=== PATIENT | male | born 1965 | race Caucasian/White ===

== ENCOUNTER 2020-08-27 23:31 | Emergency (ER) | payer MEDICARE, SELFPAY ==
[2020-08-27 23:46] VITALS: BP 122/79; BP 126/84; PULSE 66; PULSE 70; RESP 18; TEMP 36.2; O2SAT 96; O2SAT 98; BMI 25.0
[2020-08-28] VITALS: BP 117/56; PULSE 84; RESP 18; TEMP 36.8; O2SAT 98
--- NOTE | 2020-08-28 00:52 | MHC.CARE ---
CARE team met with pt in ED 22H. Pt arrived from [facility] after pt woke up agitated and banged his head on the wall. Pt reported that he woke up because people were being loud, and that he hit his head on the wall one time out of anger. Pt denied having any thoughts of suicide or and denied wanting to harm self or others. Pt reported that he has been at [facility] since his father and his mother was placed in a nursing facility, because pt is unable to remain at home independently. Pt expressed frustration with the situation, and wanting to get his belongings, but reported that he is otherwise agreeable for return to the facility. When medically cleared, ED staff will communicate with [facility] to facilitate return.
--- NOTE | 2020-08-28 01:14 | ED_ITS ---
HPI - Psych General Chief Complaint: Psychiatric Symptoms Stated Complaint: crisis Time Seen by Provider: 08/28/20 00:20 Source: patient and EMS Mode of arrival: EMS Limitations: no limitations History of Present Illness HPI Narrative: Appearance: Alert. Oriented X3. No acute distress. Eyes: Pupils equal, round and reactive to light. ENT: Pharynx normal. Neck: Normal inspection. Neck supple. No lymph nodes noted. No crepitus CVS: Normal heart rate and rhythm. Pulses normal. Normal S1 and S2 Respiratory: No respiratory distress. Breath sounds normal. No Wheezing. No rales Abdomen: Soft and nontender. No rigidity. No distention. good BS x4 Skin: Skin warm and dry. Normal skin color. Normal skin turgor. Extremities: No lower extremity edema. No lower extremity edema. No Lacerations. No Rash Neuro: Oriented X 3. No motor deficit. No sensory deficit. Moving all extermities. No slurred speech.Patient is sent to the emergency room from the [facility]. Patient states that the staff was being loud, he has trouble sleeping, he became agitated, accepts that he banged his head on the wall. Patient states he is not suicidal or homicidal, patient was just very frustrated. Patient was sent here for further evaluation. Related Data Allergies Allergy/AdvReac Type Severity Reaction Status Date / Time doxycycline [DOXYCYCLINE] Allergy Unknown UNKNOWN Unverified 05/17/20 19:53 Penicillins [PCN] Allergy Unknown SYNCOPE, Unverified 05/17/20 19:53 SEIZURE tetracycline [TETRACYCLINE] Allergy Unknown UNKNOWN Unverified 05/17/20 19:53 Review of Systems Review of Systems: Constitutional : No Weight loss, No Fever, No Chills, No Night Sweats, No Fatigue, No Malaise ENT/Mouth : No Hearing loss, No Ear Pain, No Nasal Congestion, No Sinus Pain, No Hoarseness, No sore throat, No Rhinorrhea, No Swallowing Difficulty Eyes: No Eye Pain, No Swelling, No Redness, No Foreign Body, No Discharge, No Vision Changes Cardiovascular : No Chest Pain, No SOB, No Dyspnea on Exertion, No Orthopnea, No Edema, No Palpitations Respiratory : No Cough, No Sputum, No Wheezing, No Smoke Exposure, No Dyspnea Gastrointestinal : No Nausea, No Vomiting, No Diarrhea, No Constipation, No abdominal Pain, No Hematochezia, No Melena Genitourinary : no irregular bleeding, No Dysuria, No Urinary Frequency, No Hematuria, No Urinary Incontinence, No Urgency, No Flank Pain, No Urinary Flow Changes, No Hesitancy Musculoskeletal : No joint pain, No Myalgias, No Joint Swelling Skin : No Skin Lesions, No rash Neuro : No Weakness, No Numbness, No Paresthesias, No Loss of Consciousness, No Dizziness, No Headache Psych : Patient reports an episode of anxiety, anger, head banging due to frustration Heme/Lymph: No Bruising, No Bleeding,No Lymphadenopathy Endocrine : No Polyuria, No Polydipsia, No Temperature Intolerance PMFSH Past Medical History Medical History Anxiety Epilepsy Glaucoma Hydrocephalus Neurofibromatosis Surgical History (Updated 08/27/20 @ 23:55 by Shruthi Whiteside) Surgical history unknown Social History Social History Advance Directives: No Advance Directives Information Provided: No Physical Exam Vital Signs: Vital Signs: Last Vital Signs Temp 98.2 F 08/28/20 00:00 Pulse 73 08/28/20 02:00 Resp 18 08/28/20 02:00 BP 127/69 08/28/20 02:00 Pulse Ox 97 08/28/20 02:00 Body Mass Index 25.0 Appearance: Alert. Oriented X3. No acute distress. Eyes: Pupils equal, round and reactive to light. ENT: Pharynx normal. Neck: Normal inspection. Neck supple. No lymph nodes noted. No crepitus CVS: Normal heart rate and rhythm. Pulses normal. Normal S1 and S2 Respiratory: No respiratory distress. Breath sounds normal. No Wheezing. No rales Abdomen: Soft and nontender. No rigidity. No distention. good BS x4 Skin: Skin warm and dry. Normal skin color. Normal skin turgor. Extremities: No lower extremity edema. No lower extremity edema. No Lace rations. No Rash Neuro: Oriented X 3. No motor deficit. No sensory deficit. Moving all extermities. No slurred speech. Course Course Course Narrative: The care team evaluated the patient, at this time, the recommendations are to return patient to [facility]. Urinalysis negative for UTI MDM - Psych Restraints Face to Face Assessment: Face to Face Assessment: Current Situation: After assessment of the patient, a review of the pertinent medical record and a discussion with nursing staff, I feel the patient requires a restrain intervention. Reaction To: [] Medical Condition: [] Behavioral State: [] Continued Need: [] Lab Data Labs: Lab Results 08/28/20 08/28/20 Range/Units 02:15 02:15 Urine Color YELLOW Urine Appearance CLEAR Urine pH 6.0 (5.0-8.0) Ur Specific [place] 1.020 (1.005-1.025) Urine Protein NEG (NEG-TRACE) MG/DL Urine Glucose (UA) NEG (NEG) MG/DL Urine Ketones NEG (NEG) MG/DL Urine Blood NEG (NEG) Urine Nitrite NEG (NEG) Ur Leukocyte Esterase NEG (NEG) Urine Opiates Screen Not Detected (Not Detect) Ur Barbiturates Screen Not Detected (Not Detect) Ur Phencyclidine Scrn Not Detected (Not Detect) Ur Amphetamines Screen Not Detected (Not Detect) U Benzodiazepines Scrn Not Detected (Not Detect) Urine Cocaine Screen Not Detected (Not Detect) U Marijuana (THC) Screen Not Detected (Not Detect) Discharge Plan Discharge Clinical Impression: Acute anxiety Patient Disposition: Xfer Other Instructions: Anxiety (ED) Additional Instructions: Please follow-up with your primary care physician tomorrow. If you have any wo rsening or new symptoms, please return to the emergency room or call 911
[2020-08-28 02:00] VITALS: BP 127/69; PULSE 73; RESP 18; O2SAT 97
--- NOTE | 2020-08-28 02:08 | PC.NURSE ---
PATIENT ATTEMPTING TO GIVE URINE SPECIMEN AT THIS TIME. PLAN TO DISCHARGE HOME, PENDING URINE SPECIMEN RESULTS - PER .
[2020-08-28 02:29] LABS: Glucose Urine UA NEG (NEG); Leukocyte Esterase Urine NEG (NEG); Nitrite Urine NEG (NEG); Urine Blood NEG (NEG); Urine Ketones NEG (NEG); Urine Protein NEG (NEG-TRACE)
[2020-08-28 02:34] LABS: Appearance Urine CLEAR; Color Urine YELLOW
[2020-08-28 02:52] LABS: Amphetamine Screen Urine Not Detected (Not Detect); Barbiturates, Urine Not Detected (Not Detect); Benzodiazepines Screen Urine Not Detected (Not Detect); Cannabinoid Screen Urine Not Detected (Not Detect); Cocaine Screen Urine Not Detected (Not Detect); Opiate Screen Urine Not Detected (Not Detect); Phencyclidine Screen Urine Not Detected (Not Detect)
--- NOTE | 2020-08-28 04:29 | PC.NURSE ---
AWAITING TRANSPORT BACK TO [facility]. THIS RN ATTEMPTED TO CONTACT [facility] STAFF TO GIVE RN TO RN REPORT, BUT WAS UNABLE TO REACH STAFF AT THIS TIME. WILL TRY AGAIN SHORTLY.
== END 2020-08-28 06:04 | disposition other institution (70) ==
PROVIDERS: Emergency Provider Emergency Medicine; PCP Family Medicine
DX: F41.1 Generalized anxiety disorder (principal)
CPT/HCPCS: 80307; 81003; 99284

== ENCOUNTER 2021-07-01 11:49 | Emergency (ER) | payer MEDICARE, MEDICAID, SELFPAY ==
[2021-07-01 11:59] VITALS: BP 106/64; BP 112/68; PULSE 59; PULSE 72; RESP 18; TEMP 36.3; O2SAT 100; O2SAT 98; BMI 26.6
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
[2021-07-01] MEDS: Diphth,Pertus(ACell),Tet Adult 0.5 ML SYRINGE IM (12:41)
[2021-07-01] MEDS: Lidocaine/Epineph/Tetracaine 3 ML GEL.PF.APP TOPICAL (12:41)
--- NOTE | 2021-07-01 12:43 | PC.NURSE ---
pt medicated per order
--- NOTE | 2021-07-01 13:04 | PC.NURSE ---
report called to [facility], ambulance being set up for discharge
== END 2021-07-01 14:49 | disposition home or self-care (01) ==
PROVIDERS: Emergency Provider Emergency Medicine
DX: S01.01XA Laceration without foreign body of scalp, initial encounter (principal); G40.909 Epilepsy, unspecified, not intractable, without status epilepticus; G31.84 Mild cognitive impairment of uncertain or unknown etiology; W22.03XA Walked into furniture, initial encounter; Y93.9 Activity, unspecified; Y92.129 Unspecified place in nursing home as the place of occurrence of the external cause; Y99.9 Unspecified external cause status
CPT/HCPCS: 12001; 90471; 90715; 99283; 99284

== ENCOUNTER 2021-11-08 19:03 | Inpatient (IN) | payer MEDICARE, MEDICAID, SELFPAY ==
--- NOTE | ~2021-11-08 | XR_ITS ---
EXAMINATION: XR pre mri screening CLINICAL INFORMATION: Reason for Exam has shunt COMPARISON: None. TECHNIQUE: AP and lateral radiographs of the skull; 3 AP radiographs of the abdomen and pelvis FINDINGS: Skull: Partial visualization is made of a right parietal intraventricular catheter. The reservoir is not viewed on fossa and images are not obtained for assessment of reservoir settings. Multifocal dental amalgam is identified. No orbital radiopaque foreign bodies are identified. ABDOMEN: Excreted contrast agent is noted in the urinary bladder. Partial visualization is made of a peritoneal shunt catheter. Scattered bowel gas noted in nondistended small and large bowel segments. Multiple overlying artifacts are visualized. XR/XR pre mri screening IMPRESSION: Radiographs of the skull and of the abdomen pelvis: *No embedded radiopaque foreign bodies that would be a contraindication for MRI. *Partially visualized right parietal intraventricular catheter and tunneled peritoneal shunt catheter tubing.
--- NOTE | ~2021-11-08 | CT_ITS ---
EXAMINATION: CT HEAD WITHOUT CONTRAST CLINICAL INFORMATION: Seizure COMPARISON: Earlier the same day TECHNIQUE: Contiguous axial imaging was performed from the skull base to vertex without intravenous administration of contrast. This CT examination was performed using dose optimization techniques as appropriate, variously including the following: *Automated exposure control *Adjustment of mA and/or kV according to patient size (this includes techniques or standardized protocols for targeted exams where dose is matched to indication/reason for exam; i.e. extremities or head) *Use of iterative reconstruction technique FINDINGS: There is low density involving the most anterior aspect of the corpus callosum, for example series 2 image 38/93. This was present on prior studies, perhaps slightly more conspicuous for technical reasons. No evidence of acute large vessel territory ischemia. No intracranial hemorrhage. No extra-axial fluid collection. There is 3 mm wide intermediate density overlying the left frontal lobe, for example series 2 image 56/93. This was present on the prior study 11/08/2021, partially obscured by motion. It was seen to enhance on series 5 image 18/131 of the CTA. This pattern suggests a vascular structure or pleural thickening rather than intracranial hemorrhage. Regardless it is unchanged in appearance. Right parietal approach external ventricular drainage catheter again seen with catheter tip in the right ventricle, unchanged. The ventricular system is unchanged in appearance from the prior study. There is unchanged encephalomalacia are along the catheter check. Similar chronic appearance of asymmetric scalp soft tissue density at the right posterior vertex. Globes and orbits are normal. No acute sinusitis. CT/CT head/brain wo con IMPRESSION: No acute intracranial abnormality. No significant change from prior study. Again seen is low density involving the anterior aspect of the corpus callosum. This could be further evaluated by MRI, which is been ordered. Unchanged left frontal extra-axial density, most likely vascular or dural thickening, as described above.
--- NOTE | ~2021-11-08 | CT_ITS ---
EXAMINATION: CT ANGIOGRAM NECK AND HEAD CLINICAL INFORMATION: Left temporal hemianopsia COMPARISON: Noncontrast head CT 11/08/2021 TECHNIQUE: Test bolus sequences followed by intravenous administration 70 mL of Omnipaque 350. Helical imaging was performed in the axial plane from the thoracic inlet to the skull vertex. Delayed postcontrast imaging of the head was also performed. The data was processed at the generation engineering technologist's workstation for generation of MIP sequences. Angled MIPs and volume rendered reformatted images were also generated at an offline 3D workstation. Stenoses are assessed in accordance with NASCET criteria unless otherwise indicated. DOSE LOWERING TECHNIQUES: This CT examination was performed using dose optimization techniques as appropriate, variously including the following: - Automated exposure control - Adjustment of mA and/or kV according to patient size (this includes techniques or standardized protocols for targeted exams were dose is matched to indication/reason for exam; i.e. extremities or head) - Use of iterative reconstruction technique DLP: 1768 mGy-cm FINDINGS: Neck CTA: There is a classic 3 vessel branching pattern of the aortic arch. Normal appearance of the visualized aortic arch and proximal branches. No evidence of stenosis at the branch origins. Both vertebral arteries are widely patent throughout their extracranial cervical course. Right common carotid artery is unremarkable. There is severely decreased caliber of the proximal right internal carotid artery which remains diminutive along its cervical course. Normal appearance of the left common and internal carotid arteries without focal stenosis. Brain CTA: Normal appearance of the intradural vertebral arteries. Normal appearance of the basilar and superior cerebellar arteries. Normally opacified posterior cerebral arteries bilaterally. The right internal carotid artery remains significantly diminutive and appears to terminate in the ophthalmic artery branch. The left internal carotid artery is widely patent. There is a suspected 3 mm aneurysm arising off the posterior aspect of the genu of the left internal carotid artery (axial image 446/1301). The bilateral anterior and middle cerebral artery complexes are opacified, with vascular supply to the right-sided circulation provided via the [place]. CT Head: Right-sided shunt catheter tip extends to the posterior margin of the right lateral ventricle. Redemonstrated regions of right temporal and parietal encephalomalacia. Mild volume loss is noted. No intracranial mass, hemorrhage, extra-axial collection, or midline shift. The anderson-white matter differentiation is preserved. No pathologic intra-axial enhancement or regional oligemia. No hydrocephalus. The mastoid air cells and paranasal sinuses remain well aerated. CT Neck: Left thyroid lobe nodule measures approximately 1.3 cm. There is degenerative change at the atlantodens articulation. There is disc space narrowing and surrounding degenerative endplate change in the spine at C6-C7. Upper Chest: No acute abnormalities in the visualized lung apices or upper mediastinum. AP shunt catheter courses along the anterior right chest wall. CT/CT angio head neck IMPRESSION: 1. 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 Intracranially there is patency of the right anterior and middle cerebral artery complexes, presumably from collateral flow via the [place] of [place]. 2. 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 3. Chronic appearing intracranial changes redemonstrated, as noted above. 4. Left thyroid lobe nodule measuring approximately 1.3 cm. If not already performed, further assessment with nonemergent ultrasound is recommended.
--- NOTE | ~2021-11-08 | CT_ITS ---
EXAMINATION: CT cervical spine wo con, CT head/brain wo con INDICATION INFORMATION: Reason for Exam fall neck pain COMPARISON: None TECHNIQUE: Separate noncontrast CT examinations of the head and cervical spine were performed. Coronal and sagittal images were created for each examination at the technologist workstation. This CT examination was performed using dose optimization techniques as appropriate, variously including the following: *Automated exposure control *Adjustment of mA and/or kV according to patient size (this includes techniques or standardized protocols for targeted exams where dose is matched to indication/reason for exam; i.e. extremities or head) *Use of iterative reconstruction technique DLP: 1169 mGy-cm FINDINGS: Head: Multiple low-attenuation subcutaneous dermal lesions in the soft tissues of the scalp at the vertex, consider correlation with direct examination. Mild midline ventral soft tissue scalp swelling without underlying calvarial fracture. Right parietal ventriculoperitoneal shunt catheter, catheter tip terminates in the white matter just beyond the margins of the lateral ventricle. The mastoid air cells and visualized portions of the paranasal sinuses are well aerated. There is no evidence of acute intracranial hemorrhage or territorial infarction. No abnormal mass effect or midline shift is seen. No extra-axial fluid collections are identified. Bilateral anterior temporal and right parietal encephalomalacia and white matter hypoattenuation which may reflect sequelae of prior trauma or insult. Proportional prominence of the ventricles and sulcal spaces is consistent with severe volume loss. Cervical spine: There is no evidence of acute cervical spine fracture. Vertebral bodies remain normal in height. Loss of the usual cervical spine lordosis. Degenerative disc disease at C6-C7 with loss of disc space height. No pre- or paravertebral soft tissue abnormality is identified. Mild apical paraseptal emphysema. Few small thyroid nodules measuring less than 1.[address]/CT cervical spine wo con IMPRESSION: 1. No acute intracranial abnormality. 2. No cervical spine fracture or traumatic malalignment. 3. Bilateral anterior temporal and right parietal encephalomalacia and white matter hypoattenuation which may reflect sequelae of prior trauma or insult, superimposed on a background of advanced supratentorial volume loss. 4. Right parietal ventriculoperitoneal shunt catheter, catheter tip terminates in the white matter just beyond the margins of the lateral ventricle. 5. Multiple low-attenuation subcutaneous dermal lesions in the soft tissues of the scalp at the vertex, consider correlation with direct examination.
--- NOTE | ~2021-11-08 | XR_ITS ---
EXAMINATION: XR CHEST CLINICAL INFORMATION: Fevers COMPARISON: None TECHNIQUE: Frontal view of the chest was obtained. FINDINGS: Lung volumes are low. There is airspace opacity in the right lateral midlung. Streaky opacity at the left lung base is nonspecific. Innumerable soft tissue nodules are present. No pleural effusion or pneumothorax. Right-sided ventriculoperitoneal shunt. XR/XR chest 1V IMPRESSION: Airspace opacity in the right lateral midlung is suspicious for pneumonia. Streaky opacities at left lung base could represent atelectasis, pneumonitis, or bronchial wall thickening. Innumerable soft tissue nodules are present. Recommend correlation with physical exam. A neurocutaneous syndrome could have this appearance.
--- NOTE | 2021-11-08 19:06 | ECG_ITS ---
Test Reason : FALL Blood Pressure : / mmHG Vent. Rate : 080 BPM Atrial Rate : 080 BPM P-R Int : 150 ms QRS Dur : 084 ms QT Int : 356 ms P-R-T Axes : 035 044 043 degrees QTc Int : 410 ms Normal sinus rhythm Low voltage QRS Borderline ECG No previous ECGs available Referred By: Naomie Quezada Electronically Signed By:SHAHRIAR WOODWARD MD
[2021-11-08 19:07] VITALS: PULSE 120; O2SAT 98
--- NOTE | 2021-11-08 19:17 | ED_ITS ---
HPI - Fall General Chief Complaint: Head Injury <SHAHRZAD Diehl - Last Filed: 11/09/21 02:57> Stated Complaint: fall <SHAHRZAD Diehl Last Filed: 11/09/21 02:57> Time Seen by Provider: 11/08/21 19:06 <SHAHRZAD Diehl Last Filed: 11/09/21 02:57> Source: patient and EMS <SHAHRZAD Diehl - Last Filed: 11/09/21 02:57> Mode of arrival: EMS <SHAHRZAD Diehl Last Filed: 11/09/21 02:57> Limitations: other (Patient has dementia.) <SHAHRZAD Diehl Last Filed: 11/09/21 02:57> History of Present Illness HPI Narrative: 56-year-old male past medical history significant for cognitive impairment, epilepsy, hydrocephalus, neurofibromatosis, glaucoma, anxiety presenting to the emergency department from a custodial facility for unwitnessed fall, with loss of consciousness. Unknown how long patient was on the ground for. Patient is has cognitive impairment and at times unable to elaborate on answers. He is not on anticoagulation therapy. He appears to be in no acute distress. Per EMS when they got patient took 6 people to get him on the stretcher because he was aggressive and combative. He tells me he could h ave fallen, he could have had a seizure, he could have syncopized. He says he does not know. Denies preceding symptoms. Tells me he can not see out of the left side of left eye. Denies headache or dizziness. Denies chest pain shortness of breath nausea vomiting abdominal pain. <SHAHRZAD Diehl Last Filed: 11/09/21 02:57> MD complaint: fall <SHAHRZAD Diehl Last Filed: 11/09/21 02:57> Onset (ago): day(s) (1) <SHAHRZAD Diehl Last Filed: 11/09/21 02:57> Fall from: standing <SHAHRZAD Diehl Last Filed: 11/09/21 02:57> Fall witnessed: no <SHAHRZAD Diehl - Last Filed: 11/09/21 02:57> Place fall occurred: halfway/SNF <SHAHRZAD Diehl - Last Filed: 11/09/21 02:57> Loss of consciousness: yes <SHAHRZAD Diehl - Last Filed: 11/09/21 02:57> Prolonged down time: unclear <SHAHRZAD Diehl - Last Filed: 11/09/21 02:57> Symptoms prior to fall: none <SHAHRZAD Diehl - Last Filed: 11/09/21 02:57> Related Data Home Medications: Home Medications Medication Instructions Recorded Confirmed acetaminophen 325 mg tablet 650 mg PO Q4H PRN 11/09/21 11/09/21 bisacodyl 10 mg rectal suppository 10 mg NJ DAILY PRN 11/09/21 11/09/21 lamotrigine 150 mg tablet 2 tab PO BID 11/09/21 11/09/21 lamotrigine 25 mg tablet 1 tab PO BID 11/09/21 11/09/21 levetiracetam 750 mg tablet 1 tab PO TID 11/09/21 11/09/21 lorazepam 1 mg tablet 1 mg PO Q6H PRN 11/09/21 11/09/21 magnesium hydroxide 400 mg/5 mL 30 ml PO DAILY PRN 11/09/21 11/09/21 oral suspension (Milk of Magnesia) propranolol 10 mg tablet 1 tab PO TID 11/09/21 11/09/21 risperidone 0.25 mg tablet 1 tab PO TID 11/09/21 11/09/21 Previous Rx's Medication Instructions Recorded aspirin 81 mg tablet,delayed 81 mg PO DAILY #1 tab 11/09/21 release atorvastatin 80 mg tablet 80 mg PO DAILY #1 tab 11/09/21 ceftriaxone 1 gram solution for 1 g IV Q24H #1 ea 11/09/21 injection metronidazole 500 mg/100 mL-sodium 500 mg IV Q8H #100 ml 11/09/21 chloride(iso) intravenous piggyback <SHAHRZAD Diehl Last Filed: 11/09/21 02:57> Allergies/Adverse Reactions: Allergies Allergy/AdvReac Type Severity Reaction Status Date / Time doxycycline [DOXYCYCLINE] Allergy Unknown UNKNOWN Verified 07/01/21 12:04 Penicillins [PCN] Allergy Unknown SYNCOPE, Verified 07/01/21 12:04 SEIZURE tetracycline [TETRACYCLINE] Allergy Unknown UNKNOWN Verified 07/01/21 12:04 diazepam [From Valium] Allergy Unknown Verified 11/08/21 19:14 <SHAHRZAD Diehl - Last Filed: 11/09/21 02:57> Review of Systems Review of Systems: Unable to obtain accurate review of systems as patient has cognitive impairment, not able to answer questions appropriately <SHAHRZAD Diehl - Last Filed: 11/09/21 02:57> Yes Unobtainable due to mental status <SHAHRZAD Diehl - Last Filed: 11/09/21 02:57> FOR[facility]LY [facility] Past Medical History Attestation statement: The following information was validated with the patient. <SHAHRZAD Diehl - Last Filed: 11/09/21 02:57> Source: old records reviewed and nursing notes reviewed <SHAHRZAD Diehl - Last Filed: 11/09/21 02:57> Medical History: Medical History Anxiety Cognitive impairment Epilepsy Glaucoma Hydrocephalus Neurofibromatosis <SHAHRZAD Diehl - Last Filed: 11/09/21 02:57> Surgical History: Surgical History Surgical history unknown <SHAHRZAD Diehl - Last Filed: 11/09/21 02:57> Social History Social History: Social History Alcohol intake: never Patient Tobacco Use Status: Never used Tobacco Advance Directives Date on File: 08/28/20 <SHAHRZAD Diehl - Last Filed: 11/09/21 02:57> Physical Exam Vital Signs: Vital Signs: Last Vital Signs Temp 100.6 F H 11/09/21 08:06 Pulse 110 H 11/09/21 08:06 Resp 17 11/09/21 08:06 BP 110/74 11/09/21 08:06 Pulse Ox 92 11/09/21 08:06 BMI result Body Mass Index 27.0 Vital signs stable <SHAHRZAD Diehl - Last Filed: 11/09/21 02:57> Vital Signs: Last Vital Signs Temp 100.6 F H 11/09/21 08:06 Pulse 110 H 11/09/21 08:06 Resp 17 11/09/21 08:06 BP 110/74 11/09/21 08:06 Pulse Ox 92 11/09/21 08:06 BMI result Body Mass Index 27.0 <Charlene Davidson MD - Last Filed: 11/09/21 06:42> Appearance: Patient awake, alert to person, situation, place not time. Moving all extremities. Appears to be patient's baseline according to EMS and custodial facility No acute distress.? Head: Normocephalic, atraumatic, no step-offs or deformities + laceration on forehead Eyes: Pupils equal, round and reactive to light.?+Patient's visual coreas w/ left homonymous heminanopia No traumatic injuries noted to the orbits. EOMI ENT: Pharynx normal.?+ laceration on left upper lip Neck: Normal inspection.? Neck supple.? CVS: Normal heart rate and rhythm.? Pulses normal.? Respiratory: No respiratory distress.? Breath sounds normal.? Abdomen: Soft and nontender.? Skin: Skin warm and dry.? Normal skin color.? Normal skin turgor.? Extremities: No lower extremity edema.? No calf ttp. 5/5 strength to bilateral upper and lower extremities Back: No midline tenderness, no C-spine tenderness, full range of motion, no CVA tenderness bilaterally Neuro: Awake, alert, moving all extremities appears to be patient's baseline. Oriented to person, place and situatin not time. No motor deficit.? No sensory deficit. <SHAHRZAD Diehl - Last Filed: 11/09/21 02:57> Course Reevaluation(s) Reevaluation #1: Noted that patient takes lamotrigine and Keppra for seizure disorder. Will obtain these levels. CBC appears to be at patient's baseline. Chemistry with no acute electrolyte abnormalities. Ethanol less than 10. The laceration was successfully sutured using 5 0 sutures 3 of them. Non dissolvable. Advised him to return in 3-5 days for suture removal. Pending Keppra level. <SHAHRZAD Diehl - Last Filed: 11/09/21 02:57> Time: 23:26 <SHAHRZAD Diehl - Last Filed: 11/09/21 02:57> Reevaluation #2: I had my supervising physician Dr. Perkins evaluate patient patient has a left homonymious hemianopsia. Advised to obtain a CTA, admit patient for Neurology consult in the morning. His CT scan has no acute findings these all appear to be chronic in nature. Will recheck hospitalist for admission <SHAHRZAD Diehl - Last Filed: 11/09/21 02:57> Time: 01:12 <SHAHRZAD Diehl - Last Filed: 11/09/21 02:57> Reevaluation #3: Spoke to hospitalist about this case. Who recommends be reaching out to Neurology as the symptoms started about 6 hours ago and these are new. Calling neurology who tells me he cant visually assessed the patient so he should be transferred to [facility]. Calling [facility] for trauma transfer as patient did have a head injury. Spoke to no evidence of brain injury on head CT therefore no trauma transfer to [facility]. No need for neuro surgyery. [facility] is close to transfers so for this reason I will call the engineering administrator on duty. <SHAHRZAD Diehl - Last Filed: 11/09/21 02:57> Time: 01:13 <SHAHRZAD Diehl - Last Filed: 11/09/21 02:57> Additional Reevaluation(s): 0150 Spoke to AOD Chung Lomeli who recommends having my supervising physician reach out to , and informing him that [facility] is close to transfers and not receiving this transfer. Will have speak to neurology. 0207 called back to inform us that he is not receptionist clerk, that is receptionist clerk. The service initially called him. Dr. Perkins will reach out to him. 0240 Still waiting for call back from neurology . 0247 tells me that patient should be admitted due to his neuro findings to rule out occipital stroke. MRI tomorrow. Patient will be admitted to the hospitalist team. <SHAHRZAD Diehl - Last Filed: 11/09/21 02:57> Consultations Consultation #1: pt had a seizure at approximately 6:25am while pt was bording in overflow 2mg IV ativan given, seizure stopped pt now post ictal Dr. Ayers informed. Pt getting now a repeat CT scan <Charlene Davidson MD - Last Filed: 11/09/21 06:42> MDM - Fall MDM Narrative Medical decision making narrative: 1928 56 yo m past medical history significant for cognitive impairment, epilepsy, glaucoma, hydrocephalus, neurofibromatosis, anxiety presenting with unwitnessed fall from custodial facility with laceration and left-sided temporal hemianopsia. Due to patient's cognitive impairment he is not able to answer questions appropriately. Appears to be in no acute distress. Non thinners. Physical exam patient is awake, alert to person, situation and place not time. Appears to be patient's baseline. Regular rate and rhythm. Lungs clear. Abdomen soft nontender nondistended. No focal neuro deficits. Small laceration to upper left lip and to forehead. Patient's visual coreas w/ left homonymous heminanopia (discussed this finding with my attending Dr. Perkins who suggest head and neck CT and then re-evaluation). No traumatic injuries noted to the orbits. Plan labs and imaging. Will also obtain a urine to rule out UTI I will repair forehead laceration however no need for repair lac of left upper lip laceration as this appears to be superficial, not bleeding. I suspect that this was likely a seizure as patient was aggressive at custodial facility and is now, cooperative. He does have a history of epilepsy. <SHAHRZAD Diehl - Last Filed: 11/09/21 02:57> Medical Records Attestation: I reviewed the patient's medical records. <SHAHRZAD Diehl - Last Filed: 11/09/21 02:57> Lab Data Attestation: I reviewed the patient's lab results. <SHAHRZAD Diehl Last Filed: 11/09/21 02:57> Result diagrams: : 11/09/21 07:34 11/09/21 07:34 <SHAHRZAD Diehl - Last Filed: 11/09/21 02:57> Labs: Lab Results 11/08/21 11/08/21 11/08/21 Range/Units 22:24 22:24 22:24 WBC 7.8 (4.8-10.8) X10*3/uL RBC 4.75 (4.60-5.80) X10*6/uL Hgb 13.7 L (14.0-18.0) g/dl Hct 41.0 L (42.0-52.0) % MCV 86.3 (80.0-98.0) fL MCH 28.8 (27.0-33.0) pg MCHC 33.4 (31.0-36.0) g/dl RDW 12.7 (11.0-16.0) % Plt Count 212 (160-400) X10*3/uL MPV 10.1 (9.4-12.4) fL Immature Gran % (Auto) 0.4 (0.0-0.4) % Neut % (Auto) 74.7 H (45-73) % Lymph % (Auto) 12.1 L (20-40) % [place] % (Auto) 9.3 (2-11) % Eos % (Auto) 3.1 (0-4) % Baso % (Auto) 0.4 (0-2) % Lymph # (Auto) 1.0 L (1.2-4.9) X10*3/uL [place] # (Auto) 0.7 (0.1-1.2) X10*3/uL Eos # (Auto) 0.2 (0.0-0.4) X10*3/uL Baso # (Auto) 0.0 (0.0-0.2) X10*3/uL Abs Immat Gran (auto) 0.03 (0.00-0.03) X10*3/uL Absolute Neuts (auto) 5.9 (2.0-8.3) x10*3/uL Absolute Nucleated RBC 0.000 (0.0-0.012) X10*3/uL Nucleated RBC % (auto) 0.0 (0.0-0.2) /100WBC Sodium 137 (135-145) mmol/L Potassium 4.1 (3.3-5.1) mmol/L Chloride 105 (96-108) mmol/L Carbon Dioxide 25 (22-29) mmol/L Anion Gap 11 L (12-20) BUN 16 (9-16) mg/dL Creatinine 0.80 (0.5-1.4) mg/dL Estim Creat Clear Calc 96.3 Estimated GFR > 60 Random Glucose 125 H (60-115) mg/dL Calcium 9.3 (8.4-10.2) mg/dL Total Bilirubin 0.4 (0.0-1.0) mg/dL AST 9 (5-37) U/L ALT 11 (0-40) U/L Alkaline Phosphatase 88 (39-117) U/L Total Creatine Kinase (38-174) U/L Troponin I High Sens (<3.5-35.0) ng/L Total Protein 6.0 L (6.5-8.0) g/dL Albumin 3.8 (3.5-5.0) g/dL Urine Color Urine Appearance Urine pH (5.0-8.0) Ur Specific [place] (1.005-1.025) Urine Protein (NEG-TRACE) MG/DL Urine Glucose (UA) (NEG) MG/DL Urine Ketones (NEG) MG/DL Urine Blood (NEG) Urine Nitrite (NEG) Ur Leukocyte Esterase (NEG) Urine Opiates Screen (Not Detect) Urine Fentanyl Screen (Not Detect) Ur Barbiturates Screen (Not Detect) Ur Phencyclidine Scrn (Not Detect) Ur Amphetamines Screen (Not Detect) U Benzodiazepines Scrn (Not Detect) Urine Cocaine Screen (Not Detect) U Marijuana (THC) Screen (Not Detect) Ethyl Alcohol mg/dL COVID-19 (VERONIKA) Negative (Negative) COVID-19 Clin Com See Note 11/08/21 11/08/21 11/08/21 Range/Units 22:24 22:24 22:24 WBC (4.8-10.8) X10*3/uL RBC (4.60-5.80) X10*6/uL Hgb (14.0-18.0) g/dl Hct (42.0-52.0) % MCV (80.0-98.0) fL MCH (27.0-33.0) pg MCHC (31.0-36.0) g/dl RDW (11.0-16.0) % Plt Count (160-400) X10*3/uL MPV (9.4-12.4) fL Immature Gran % (Auto) (0.0-0.4) % Neut % (Auto) (45-73) % Lymph % (Auto) (20-40) % [place] % (Auto) (2-11) % Eos % (Auto) (0-4) % Baso % (Auto) (0-2) % Lymph # (Auto) (1.2-4.9) X10*3/uL [place] # (Auto) (0.1-1.2) X10*3/uL Eos # (Auto) (0.0-0.4) X10*3/uL Baso # (Auto) (0.0-0.2) X10*3/uL Abs Immat Gran (auto) (0.00-0.03) X10*3/uL Absolute Neuts (auto) (2.0-8.3) x10*3/uL Absolute Nucleated RBC (0.0-0.012) X10*3/uL Nucleated RBC % (auto) (0.0-0.2) /100WBC Sodium (135-145) mmol/L Potassium (3.3-5.1) mmol/L Chloride (96-108) mmol/L Carbon Dioxide (22-29) mmol/L Anion Gap (12-20) BUN (9-16) mg/dL Creatinine (0.5-1.4) mg/dL Estim Creat Clear Calc Estimated GFR Random Glucose (60-115) mg/dL Calcium (8.4-10.2) mg/dL Total Bilirubin (0.0-1.0) mg/dL AST (5-37) U/L ALT (0-40) U/L Alkaline Phosphatase (39-117) U/L Total Creatine Kinase 76 (38-174) U/L Troponin I High Sens 5.1 (<3.5-35.0) ng/L Total Protein (6.5-8.0) g/dL Albumin (3.5-5.0) g/dL Urine Color Urine Appearance Urine pH (5.0-8.0) Ur Specific [place] (1.005-1.025) Urine Protein (NEG-TRACE) MG/DL Urine Glucose (UA) (NEG) MG/DL Urine Ketones (NEG) MG/DL Urine Blood (NEG) Urine Nitrite (NEG) Ur Leukocyte Esterase (NEG) Urine Opiates Screen (Not Detect) Urine Fentanyl Screen (Not Detect) Ur Barbiturates Screen (Not Detect) Ur Phencyclidine Scrn (Not Detect) Ur Amphetamines Screen (Not Detect) U Benzodiazepines Scrn (Not Detect) Urine Cocaine Screen (Not Detect) U Marijuana (THC) Screen (Not Detect) Ethyl Alcohol < 10 mg/dL COVID-19 (VERONIKA) (Negative) COVID-19 Clin Com 11/09/21 11/09/21 Range/Units 01:59 01:59 WBC (4.8-10.8) X10*3/uL RBC (4.60-5.80) X10*6/uL Hgb (14.0-18.0) g/dl Hct (42.0-52.0) % MCV (80.0-98.0) fL MCH (27.0-33.0) pg MCHC (31.0-36.0) g/dl RDW (11.0-16.0) % Plt Count (160-400) X10*3/uL MPV (9.4-12.4) fL Immature Gran % (Auto) (0.0-0.4) % Neut % (Auto) (45-73) % Lymph % (Auto) (20-40) % [place] % (Auto) (2-11) % Eos % (Auto) (0-4) % Baso % (Auto) (0-2) % Lymph # (Auto) (1.2-4.9) X10*3/uL [place] # (Auto) (0.1-1.2) X10*3/uL Eos # (Auto) (0.0-0.4) X10*3/uL Baso # (Auto) (0.0-0.2) X10*3/uL Abs Immat Gran (auto) (0.00-0.03) X10*3/uL Absolute Neuts (auto) (2.0-8.3) x10*3/uL Absolute Nucleated RBC (0.0-0.012) X10*3/uL Nucleated RBC % (auto) (0.0-0.2) /100WBC Sodium (135-145) mmol/L Potassium (3.3-5.1) mmol/L Chloride (96-108) mmol/L Carbon Dioxide (22-29) mmol/L Anion Gap (12-20) BUN (9-16) mg/dL Creatinine (0.5-1.4) mg/dL Estim Creat Clear Calc Estimated GFR Random Glucose (60-115) mg/dL Calcium (8.4-10.2) mg/dL Total Bilirubin (0.0-1.0) mg/dL AST (5-37) U/L ALT (0-40) U/L Alkaline Phosphatase (39-117) U/L Total Creatine Kinase (38-174) U/L Troponin I High Sens (<3.5-35.0) ng/L Total Protein (6.5-8.0) g/dL Albumin (3.5-5.0) g/dL Urine Color YELLOW Urine Appearance CLEAR Urine pH 6.0 (5.0-8.0) Ur Specific [place] 1.020 (1.005-1.025) Urine Protein NEG (NEG-TRACE) MG/DL Urine Glucose (UA) NEG (NEG) MG/DL Urine Ketones NEG (NEG) MG/DL Urine Blood NEG (NEG) Urine Nitrite NEG (NEG) Ur Leukocyte Esterase NEG (NEG) Urine Opiates Screen Not Detected (Not Detect) Urine Fentanyl Screen Not Detected (Not Detect) Ur Barbiturates Screen Not Detected (Not Detect) Ur Phencyclidine Scrn Not Detected (Not Detect) Ur Amphetamines Screen Not Detected (Not Detect) U Benzodiazepines Scrn Not Detected (Not Detect) Urine Cocaine Screen Not Detected (Not Detect) U Marijuana (THC) Screen Not Detected (Not Detect) Ethyl Alcohol mg/dL COVID-19 (VERONIKA) (Negative) COVID-19 Clin Com <SHAHRZAD Diehl - Last Filed: 11/09/21 02:57> Lab Results 11/08/21 11/08/21 11/08/21 Range/Units 22:24 22:24 22:24 WBC 7.8 (4.8-10.8) X10*3/uL RBC 4.75 (4.60-5.80) X10*6/uL Hgb 13.7 L (14.0-18.0) g/dl Hct 41.0 L (42.0-52.0) % MCV 86.3 (80.0-98.0) fL MCH 28.8 (27.0-33.0) pg MCHC 33.4 (31.0-36.0) g/dl RDW 12.7 (11.0-16.0) % Plt Count 212 (160-400) X10*3/uL MPV 10.1 (9.4-12.4) fL Immature Gran % (Auto) 0.4 (0.0-0.4) % Neut % (Auto) 74.7 H (45-73) % Lymph % (Auto) 12.1 L (20-40) % [place] % (Auto) 9.3 (2-11) % Eos % (Auto) 3.1 (0-4) % Baso % (Auto) 0.4 (0-2) % Lymph # (Auto) 1.0 L (1.2-4.9) X10*3/uL [place] # (Auto) 0.7 (0.1-1.2) X10*3/uL Eos # (Auto) 0.2 (0.0-0.4) X10*3/uL Baso # (Auto) 0.0 (0.0-0.2) X10*3/uL Abs Immat Gran (auto) 0.03 (0.00-0.03) X10*3/uL Absolute Neuts (auto) 5.9 (2.0-8.3) x10*3/uL Absolute Nucleated RBC 0.000 (0.0-0.012) X10*3/uL Nucleated RBC % (auto) 0.0 (0.0-0.2) /100WBC Sodium 137 (135-145) mmol/L Potassium 4.1 (3.3-5.1) mmol/L Chloride 105 (96-108) mmol/L Carbon Dioxide 25 (22-29) mmol/L Anion Gap 11 L (12-20) BUN 16 (9-16) mg/dL Creatinine 0.80 (0.5-1.4) mg/dL Estim Creat Clear Calc 96.3 Estimated GFR > 60 Random Glucose 125 H (60-115) mg/dL Calcium 9.3 (8.4-10.2) mg/dL Total Bilirubin 0.4 (0.0-1.0) mg/dL AST 9 (5-37) U/L ALT 11 (0-40) U/L Alkaline Phosphatase 88 (39-117) U/L Total Creatine Kinase (38-174) U/L Troponin I High Sens (<3.5-35.0) ng/L Total Protein 6.0 L (6.5-8.0) g/dL Albumin 3.8 (3.5-5.0) g/dL Urine Color Urine Appearance Urine pH (5.0-8.0) Ur Specific [place] (1.005-1.025) Urine Protein (NEG-TRACE) MG/DL Urine Glucose (UA) (NEG) MG/DL Urine Ketones (NEG) MG/DL Urine Blood (NEG) Urine Nitrite (NEG) Ur Leukocyte Esterase (NEG) Urine Opiates Screen (Not Detect) Urine Fentanyl Screen (Not Detect) Ur Barbiturates Screen (Not Detect) Ur Phencyclidine Scrn (Not Detect) Ur Amphetamines Screen (Not Detect) U Benzodiazepines Scrn (Not Detect) Urine Cocaine Screen (Not Detect) U Marijuana (THC) Screen (Not Detect) Ethyl Alcohol mg/dL COVID-19 (VERONIKA) Negative (Negative) COVID-19 Clin Com See Note 11/08/21 11/08/21 11/08/21 Range/Units 22:24 22:24 22:24 WBC (4.8-10.8) X10*3/uL RBC (4.60-5.80) X10*6/uL Hgb (14.0-18.0) g/dl Hct (42.0-52.0) % MCV (80.0-98.0) fL MCH (27.0-33.0) pg MCHC (31.0-36.0) g/dl RDW (11.0-16.0) % Plt Count (160-400) X10*3/uL MPV (9.4-12.4) fL Immature Gran % (Auto) (0.0-0.4) % Neut % (Auto) (45-73) % Lymph % (Auto) (20-40) % [place] % (Auto) (2-11) % Eos % (Auto) (0-4) % Baso % (Auto) (0-2) % Lymph # (Auto) (1.2-4.9) X10*3/uL [place] # (Auto) (0.1-1.2) X10*3/uL Eos # (Auto) (0.0-0.4) X10*3/uL Baso # (Auto) (0.0-0.2) X10*3/uL Abs Immat Gran (auto) (0.00-0.03) X10*3/uL Absolute Neuts (auto) (2.0-8.3) x10*3/uL Absolute Nucleated RBC (0.0-0.012) X10*3/uL Nucleated RBC % (auto) (0.0-0.2) /100WBC Sodium (135-145) mmol/L Potassium (3.3-5.1) mmol/L Chloride (96-108) mmol/L Carbon Dioxide (22-29) mmol/L Anion Gap (12-20) BUN (9-16) mg/dL Creatinine (0.5-1.4) mg/dL Estim Creat Clear Calc Estimated GFR Random Glucose (60-115) mg/dL Calcium (8.4-10.2) mg/dL Total Bilirubin (0.0-1.0) mg/dL AST (5-37) U/L ALT (0-40) U/L Alkaline Phosphatase (39-117) U/L Total Creatine Kinase 76 (38-174) U/L Troponin I High Sens 5.1 (<3.5-35.0) ng/L Total Protein (6.5-8.0) g/dL Albumin (3.5-5.0) g/dL Urine Color Urine Appearance Urine pH (5.0-8.0) Ur Specific [place] (1.005-1.025) Urine Protein (NEG-TRACE) MG/DL Urine Glucose (UA) (NEG) MG/DL Urine Ketones (NEG) MG/DL Urine Blood (NEG) Urine Nitrite (NEG) Ur Leukocyte Esterase (NEG) Urine Opiates Screen (Not Detect) Urine Fentanyl Screen (Not Detect) Ur Barbiturates Screen (Not Detect) Ur Phencyclidine Scrn (Not Detect) Ur Amphetamines Screen (Not Detect) U Benzodiazepines Scrn (Not Detect) Urine Cocaine Screen (Not Detect) U Marijuana (THC) Screen (Not Detect) Ethyl Alcohol < 10 mg/dL COVID-19 (VERONIKA) (Negative) COVID-19 Clin Com 11/09/21 11/09/21 Range/Units 01:59 01:59 WBC (4.8-10.8) X10*3/uL RBC (4.60-5.80) X10*6/uL Hgb (14.0-18.0) g/dl Hct (42.0-52.0) % MCV (80.0-98.0) fL MCH (27.0-33.0) pg MCHC (31.0-36.0) g/dl RDW (11.0-16.0) % Plt Count (160-400) X10*3/uL MPV (9.4-12.4) fL Immature Gran % (Auto) (0.0-0.4) % Neut % (Auto) (45-73) % Lymph % (Auto) (20-40) % [place] % (Auto) (2-11) % Eos % (Auto) (0-4) % Baso % (Auto) (0-2) % Lymph # (Auto) (1.2-4.9) X10*3/uL [place] # (Auto) (0.1-1.2) X10*3/uL Eos # (Auto) (0.0-0.4) X10*3/uL Baso # (Auto) (0.0-0.2) X10*3/uL Abs Immat Gran (auto) (0.00-0.03) X10*3/uL Absolute Neuts (auto) (2.0-8.3) x10*3/uL Absolute Nucleated RBC (0.0-0.012) X10*3/uL Nucleated RBC % (auto) (0.0-0.2) /100WBC Sodium (135-145) mmol/L Potassium (3.3-5.1) mmol/L Chloride (96-108) mmol/L Carbon Dioxide (22-29) mmol/L Anion Gap (12-20) BUN (9-16) mg/dL Creatinine (0.5-1.4) mg/dL Estim Creat Clear Calc Estimated GFR Random Glucose (60-115) mg/dL Calcium (8.4-10.2) mg/dL Total Bilirubin (0.0-1.0) mg/dL AST (5-37) U/L ALT (0-40) U/L Alkaline Phosphatase (39-117) U/L Total Creatine Kinase (38-174) U/L Troponin I High Sens (<3.5-35.0) ng/L Total Protein (6.5-8.0) g/dL Albumin (3.5-5.0) g/dL Urine Color YELLOW Urine Appearance CLEAR Urine pH 6.0 (5.0-8.0) Ur Specific [place] 1.020 (1.005-1.025) Urine Protein NEG (NEG-TRACE) MG/DL Urine Glucose (UA) NEG (NEG) MG/DL Urine Ketones NEG (NEG) MG/DL Urine Blood NEG (NEG) Urine Nitrite NEG (NEG) Ur Leukocyte Esterase NEG (NEG) Urine Opiates Screen Not Detected (Not Detect) Urine Fentanyl Screen Not Detected (Not Detect) Ur Barbiturates Screen Not Detected (Not Detect) Ur Phencyclidine Scrn Not Detected (Not Detect) Ur Amphetamines Screen Not Detected (Not Detect) U Benzodiazepines Scrn Not Detected (Not Detect) Urine Cocaine Screen Not Detected (Not Detect) U Marijuana (THC) Screen Not Detected (Not Detect) Ethyl Alcohol mg/dL COVID-19 (VERONIKA) (Negative) COVID-19 Clin Com <Charlene Davidson MD - Last Filed: 11/09/21 06:42> ECG Data Attestation: I personally reviewed and interpreted this ECG as follows: <SHAHRZAD Diehl - Last Filed: 11/09/21 02:57> ECG interpretation date: 11/08/21 <SHAHRZAD Diehl - Last Filed: 11/09/21 02:57> ECG interpretation time: 23:28 <SHAHRZAD Diehl - Last Filed: 11/09/21 02:57> Prior ECG tracings: not available for review <SHAHRZAD Diehl - Last Filed: 11/09/21 02:57> Interpretation: Ventricular rate of 80 [place] normal QRS normal, QT/QTC normal. EKG shows low voltage QRS with normal sinus rhythm. No ST elevations or inversions concerning for ischemia. No other EKGs to compare with. <SHAHRZAD Diehl - Last Filed: 11/09/21 02:57> Critical Care Time Critical Care Time Critical Care Time: Yes <SHAHRZAD Diehl - Last Filed: 11/09/21 02:57> Total Critical Care Time: 120 <SHAHRZAD Diehl - Last Filed: 11/09/21 02:57> Attestation: I attest to this time spent taking care of the patient, obtaining history, physical, reviewing labs, imaging, speaking to my attending, speaking to specialist. <SHAHRZAD Diehl - Last Filed: 11/09/21 02:57> Discharge Plan Discharge Clinical Impression: Fall, Forehead laceration, Hemianopia, homonymous, left <SHAHRZAD Diehl - Last Filed: 11/09/21 02:57> Patient Disposition: Home, Self-Care <SHAHRZAD Diehl - Last Filed: 11/09/21 02:57> Interventions: ED Discharge Assessment Last Done: 11/09/21 16:23 <SHAHRZAD Diehl Last Filed: 11/09/21 02:57> Discharge Date/Time: 11/09/21 16:48 <SHAHRZAD Diehl - Last Filed: 11/09/21 02:57>
[2021-11-08 19:20] VITALS: BP 116/68; PULSE 94; RESP 20; TEMP 36.8; O2SAT 98; BMI 27.0
[2021-11-08] MEDS: Lidocaine HCl 2 % MPF 5 ML VIAL SUBCUT (20:32)
[2021-11-08 21:53] VITALS: BP 105/61; PULSE 79; RESP 16; TEMP 37; O2SAT 95
[2021-11-08 22:29] LABS: MANUAL DIFF FLAG NO
[2021-11-08 22:30] LABS: Basophils Percent Auto 0.4 % (0-2); Eosinophils Absolute Auto 0.2 X10*3/uL (0.0-0.4); Eosinophils Percent Auto 3.1 % (0-4); Hemoglobin 13.7 g/dl (14.0-18.0); Imm Gran Abs Auto 0.03 X10*3/uL (0.00-0.03); Imm Gran Pct Auto 0.4 % (0.0-0.4); Lymphocytes Percent Auto 12.1 % (20-40); Mean Corpuscular HGB Conc 33.4 g/dl (31.0-36.0); Mean Corpuscular Hemoglobin 28.8 pg (27.0-33.0); Mean Corpuscular Volume 86.3 fL (80.0-98.0); Mean Platelet Volume 10.1 fL (9.4-12.4); Monocytes Absolute Auto 0.7 X10*3/uL (0.1-1.2); Monocytes Percent Auto 9.3 % (2-11); Neutrophils Absolute Auto 5.9 x10*3/uL (2.0-8.3); Neutrophils Percent Auto 74.7 % (45-73); Platelet Count 212 X10*3/uL (160-400); Red Blood Count 4.75 X10*6/uL (4.60-5.80); Red Cell Distribution Width 12.7 % (11.0-16.0); White Blood Count 7.8 X10*3/uL (4.8-10.8)
[2021-11-08 22:46] LABS: Ethanol < 10 mg/dL
[2021-11-08 22:49] LABS: Alanine Aminotransferase 11 U/L (0-40); Albumin Level 3.8 g/dL (3.5-5.0); Alkaline Phosphatase 88 U/L (39-117); Anion Gap 11 (12-20); Aspartate Amino Transferase 9 U/L (5-37); Bilirubin Total 0.4 mg/dL (0.0-1.0); Blood Urea Nitrogen 16 mg/dL (9-16); Calcium 9.3 mg/dL (8.4-10.2); Carbon Dioxide 25 mmol/L (22-29); Chloride 105 mmol/L (96-108); Creatinine Clr Calc Pharmacy 96.3; Estimated Glomerular Filt Rate > 60; Glucose Random 125 mg/dL (60-115); Potassium 4.1 mmol/L (3.3-5.1); Sodium 137 mmol/L (135-145)
[2021-11-08 22:55] LABS: COVID-19 Test Negative (Negative)
[2021-11-08 23:56] VITALS: BP 97/51; PULSE 64; RESP 16; O2SAT 100
[2021-11-09] VITALS (7 sets, daily range): BP systolic 101–121; BP diastolic 64–78; PULSE 60–110; RESP 16–18; TEMP 38.1; O2SAT 92–100
[2021-11-09] MEDS: 0.9 % Sodium Chloride 1,000 ML 999 ML IV (00:40)
--- NOTE | 2021-11-09 01:21 | PC.NURSE ---
This US spoke to Charlene from the [facility] Transfer line [phone] @[phone] regarding transfer. Expecting call back
[2021-11-09] MEDS: iohexoL 350 MG/ML 100 ML INFUS..BTL 70 ML IV (01:49)
--- NOTE | 2021-11-09 02:02 | PM.IMHP ---
History of Present Illness Date of Service: 11/09/21 Chief Complaint: fall this is a 56-year-old male with past medical history of cognitive impairment, epilepsy, hydrocephalus status post AUTO DESIGN CHECKER shunt, neurofibromatosis, glaucoma, and anxiety presenting to the emergency department from [facility] for unwitnessed fall with loss of consciousness and head trauma. Patient is very slow to respond and is not given much detail about the fall but reports that he had a fall hit his head and did lose consciousness. He denies having had any chest pain, or palpitations prior to the fall. He denies any headache at this time, no numbness tingling or weakness in his arms or legs. He does report that he has blurry vision and is not seeing from the corner of his left eye. He is unable to elaborate further. per EMS report patient was very weak to get off the floor and required significant res habilitation assistant to be lifted up into the stretcher. He appeared to also be aggressive and combative. At this time patient denies any chest pain, no palpitations, no abdominal pain nausea or vomiting, no diarrhea constipation, no urinary symptoms and no lower extremity edema. Patient had laceration in his forehead and was sutured in the ED. on further evaluation in the ED patient found to have left homonymous hemianopsia CT of the head was done which showed no acute intracranial abnormality, no cervical spine fracture traumatic malalignment, bilateral anterior temporal and right parietal encephalomalacia and white matter hypoattenuation which may reflect sequelae of prior trauma or insult and superimposed on background of advanced supratentorial volume loss. presence of AUTO DESIGN CHECKER shunt. neurology was consulted, initially felt that patient should be transferred to tertiary care given the trauma and head injury, [facility] was contacted, neurologist at [facility] felt the patient did not require transfer as there was no evidence of head trauma or abnormality on head CT. On further discussion with Neurology patient will be admitted to our facility with close monitoring an MRI in the morning while on the floor patient developed 1 episode of seizure, lasted less than 1 minute. Received 2 mg of Ativan. Patient did become postictal. Repeat head CT showed no acute intracranial abnormality, no significant changed from prior study. 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 patient will be admitted for evaluation of possible posterior stroke I am unable to obtain detailed past medical/surgical or family hx given pt clinical and mental status.history is obtained mostly using EMR Review of Systems Review of Systems: Yes all other systems are reviewed and are negative [facility] Medical History Anxiety Cognitive impairment Epilepsy Glaucoma Hydrocephalus Neurofibromatosis Surgical History Surgical history unknown Social History Alcohol intake: never Patient Tobacco Use Status: Never used Tobacco Advance Directives: Yes Advance Directives on File: Yes Advance Directives Date on File: 08/28/20 Meds Allergies Allergy/AdvReac Type Severity Reaction Status Date / Time doxycycline [DOXYCYCLINE] Allergy Unknown UNKNOWN Verified 07/01/21 12:04 Penicillins [PCN] Allergy Unknown SYNCOPE, Verified 07/01/21 12:04 SEIZURE tetracycline [TETRACYCLINE] Allergy Unknown UNKNOWN Verified 07/01/21 12:04 diazepam [From Valium] Allergy Unknown Verified 11/08/21 19:14 Home Medications Medication Instructions Recorded Confirmed Last Taken Type acetaminophen 325 mg tablet 650 mg PO Q4H PRN 11/09/21 11/09/21 Unknown History bisacodyl 10 mg rectal suppository 10 mg LA DAILY PRN 11/09/21 11/09/21 Unknown History lamotrigine 150 mg tablet 2 tab PO BID 11/09/21 11/09/21 Unknown History lamotrigine 25 mg tablet 1 tab PO BID 11/09/21 11/09/21 Unknown History levetiracetam 750 mg tablet 1 tab PO TID 11/09/21 11/09/21 Unknown History lorazepam 1 mg tablet 1 mg PO Q6H PRN 11/09/21 11/09/21 Unknown History magnesium hydroxide 400 mg/5 mL 30 ml PO DAILY PRN 11/09/21 11/09/21 Unknown History oral suspension (Milk of Magnesia) propranolol 10 mg tablet 1 tab PO TID 11/09/21 11/09/21 Unknown History risperidone 0.25 mg tablet 1 tab PO TID 11/09/21 11/09/21 Unknown History Physical Exam Vital Signs and Narrative: Vital Signs: Last Vital Signs Temp 98.6 F 11/08/21 21:53 Pulse 71 11/09/21 01:58 Resp 16 11/09/21 01:58 BP 119/71 11/09/21 01:58 Pulse Ox 95 11/09/21 01:58 BMI result Body Mass Index 27.0 Const: Other: pt alert and awake, slow to respond but answers question with one word answers General: cooperative and no acute distress HENMT: Other: laceration present at episcopal region, sutured Eyes: General: appearance normal, both eyes and all related structures Pupils: Equal, round and reactive pupils present Resp: Effort & Inspection: normal respiratory effort Auscultation: clear to auscultation bilaterally Cardio: Rate: regular rate Rhythm: regular rhythm GI: Palpation (GI): Soft to palpation Auscultation: normal bowel sounds Skin: General skin exam: no rashes or lesions noted Neuro: Other: left homonymous hemianopsia present strength is 5/5 in upper and lower extremities Cranial nerves: Yes Equal, round and reactive pupils present Extrem: General: Yes normal to inspection and Yes no pedal edema Results Labs CBC and Chem 7: 11/09/21 07:34 11/09/21 07:34 Labs: Laboratory Results - last 24 hr 11/08/21 11/08/21 11/08/21 22:24 22:24 22:24 MCV 86.3 MCH 28.8 MCHC 33.4 RDW 12.7 Plt Count 212 MPV 10.1 Immature Gran % (Auto) 0.4 Neut % (Auto) 74.7 H Lymph % (Auto) 12.1 L [place] % (Auto) 9.3 Eos % (Auto) 3.1 Baso % (Auto) 0.4 Lymph # (Auto) 1.0 L [place] # (Auto) 0.7 Eos # (Auto) 0.2 Baso # (Auto) 0.0 Abs Immat Gran (auto) 0.03 Absolute Neuts (auto) 5.9 Absolute Nucleated RBC 0.000 Nucleated RBC % (auto) 0.0 Anion Gap 11 L Estim Creat Clear Calc 96.3 Estimated GFR > 60 Random Glucose 125 H Calcium 9.3 Total Bilirubin 0.4 AST 9 ALT 11 Alkaline Phosphatase 88 Total Creatine Kinase Total Protein 6.0 L Albumin 3.8 Ethyl Alcohol COVID-19 (VERONIKA) Negative COVID-19 Clin Com See Note 11/08/21 11/08/21 22:24 22:24 MCV MCH MCHC RDW Plt Count MPV Immature Gran % (Auto) Neut % (Auto) Lymph % (Auto) [place] % (Auto) Eos % (Auto) Baso % (Auto) Lymph # (Auto) [place] # (Auto) Eos # (Auto) Baso # (Auto) Abs Immat Gran (auto) Absolute Neuts (auto) Absolute Nucleated RBC Nucleated RBC % (auto) Anion Gap Estim Creat Clear Calc Estimated GFR Random Glucose Calcium Total Bilirubin AST ALT Alkaline Phosphatase Total Creatine Kinase 76 Total Protein Albumin Ethyl Alcohol < 10 COVID-19 (VERONIKA) COVID-19 Clin Com Imaging Radiologist's Impressions: Impressions Cervical Spine CT 11/08/21 20:07 IMPRESSION: 1. No acute intracranial abnormality. 2. No cervical spine fracture or traumatic malalignment. 3. Bilateral anterior temporal and right parietal encephalomalacia and white matter hypoattenuation which may reflect sequelae of prior trauma or insult, superimposed on a background of advanced supratentorial volume loss. 4. Right parietal ventriculoperitoneal shunt catheter, catheter tip terminates in the white matter just beyond the margins of the lateral ventricle. 5. Multiple low-attenuation subcutaneous dermal lesions in the soft tissues of the scalp at the vertex, consider correlation with direct examination. Head CT 11/08/21 20:07 IMPRESSION: 1. No acute intracranial abnormality. 2. No cervical spine fracture or traumatic malalignment. 3. Bilateral anterior temporal and right parietal encephalomalacia and white matter hypoattenuation which may reflect sequelae of prior trauma or insult, superimposed on a background of advanced supratentorial volume loss. 4. Right parietal ventriculoperitoneal shunt catheter, catheter tip terminates in the white matter just beyond the margins of the lateral ventricle. 5. Multiple low-attenuation subcutaneous dermal lesions in the soft tissues of the scalp at the vertex, consider correlation with direct examination. Assessment and Plan (1) Breakthrough seizure: Status: Acute (2) Fall: Status: Acute (3) Forehead laceration: Status: Acute (4) Hemianopia, homonymous, left: Status: Acute Plan 56-year-old male with past medical history of neurofibromatosis, seizure disorder, hydrocephalus status post AUTO DESIGN CHECKER shunt presents to the hospital after a fall possible secondary to breakthrough seizure found to have left homonymous hemianopia patient will be admitted for Jean and neurology evaluation # left homonymous mehianopia - possibly secondary to posterior CVA - CT head and CT angiogram showed no evidence of acute intracranial pathology - will obtain MRI in the morning - neurology consulted - ASA and statin ordered # breakthrough seizure - pending lamotrigine and Keppra levels - Ativan p.r.n. - continue home medications - neurology consulted # fall with forehead laceration - fall possibly secondary to seizure episode - head laceration sutured with 3 sutures - CT findings as above - monitor DVT prophylaxis: SCD pending MRI results Quality Stroke Does the patient have a stroke diagnosis?: No VTE Prior VTE?: No VTE Risk Level:: Medical - moderate - high VTE Device Contraindication: N/A - Device Ordered VTE Drug Contraindication: Treatment Not Tolerated
[2021-11-09 02:06] LABS: Appearance Urine CLEAR; Color Urine YELLOW; Glucose Urine UA NEG (NEG); Leukocyte Esterase Urine NEG (NEG); Nitrite Urine NEG (NEG); Urine Blood NEG (NEG); Urine Ketones NEG (NEG); Urine Protein NEG (NEG-TRACE)
[2021-11-09 02:33] LABS: Amphetamine Screen Urine Not Detected (Not Detect); Barbiturates, Urine Not Detected (Not Detect); Benzodiazepines Screen Urine Not Detected (Not Detect); Cannabinoid Screen Urine Not Detected (Not Detect); Cocaine Screen Urine Not Detected (Not Detect); Opiate Screen Urine Not Detected (Not Detect); Phencyclidine Screen Urine Not Detected (Not Detect)
[2021-11-09 02:42] LABS: Fentanyl, urine Not Detected (Not Detect)
[2021-11-09 03:21] LABS: Troponin-I High Sensitivity 5.1 ng/L (<3.5-35.0)
--- NOTE | 2021-11-09 05:15 | PC.NURSE ---
pt states painful sore throat with difficulty breathing and swallowing. pt throat is very red. Pt voice is hoarse. Pt states SOB and difficulty catching his breath but is satting well on the monitor. Pt ls are clear. Pt does not have any other complaints at this time. Speecch is clear, no facial droop, ambulates with a steady gait. NS on the monitor, no edema cap refill <2 sec. Skin is appropriate for ethnicity warm and dry.
[2021-11-09] MEDS: LORazepam 2 MG/ML VIAL IVPUSH (06:42)
--- NOTE | 2021-11-09 06:52 | PC.NURSE ---
PATIENT TRANSFERRED FROM MAIN ED TO [facility] APPROX. 0500. PT AWAKE, ANSWERED FEW QUESTIONS BUT FELT TO BE CONFUSED/FORGETFUL AT TIMES WHILE ASKING GENERAL QUESTIONS. PT DID SUSTAIN A FALL AT [facility] WHERE HE WAS SENT FROM AND RECIEVED 3 STITCHES TO MID FOREHEAD. PATIENT SETTLED INTO BED AND NOTED TO NAP WITH NO S/SX DISTRESS. HOSPITALIST DID COME TO SEE PATIENT AND SPOKE WITH HIM AT BEDSIDE. FITTER UP TO BEDSIDE SOMEWHERE NEAR 0600 AND BEFORE DRAW WE HEARD A GRUNT AND THEN PT SUSTAINED A SEIZURE FOR 45 SECONDS TO 1 MINUTE DURATION. OXYGEN APPLIED, STAYED WITH PT FOR SAFETY, AND THEN WHILE STILL APPLIED TELE MONITOR. NSG NEW CAR MAKE READY WORKER, HOSPITALIST ALERTED AND ED CHARGE NURSE. ED MD ARRIVED TO OVERFLOW AND ORDERED ATIVAN IVP 2MG TO BE GIVEN. ADRI POLANCO ADMINISTERED THE ATIVAN AND THEN PT TO CT SCAN PER ORDER. RETURNED SAFELY AND SLEEPING AT 0649. WILL REPORT OFF TO DAY RN
[2021-11-09 07:40] LABS: MANUAL DIFF FLAG NO
[2021-11-09 07:43] LABS: Basophils Percent Auto 0.4 % (0-2); Eosinophils Absolute Auto 0.1 X10*3/uL (0.0-0.4); Eosinophils Percent Auto 1.6 % (0-4); Hematocrit 41.1 % (42.0-52.0); Hemoglobin 13.4 g/dl (14.0-18.0); Imm Gran Abs Auto 0.02 X10*3/uL (0.00-0.03); Imm Gran Pct Auto 0.2 % (0.0-0.4); Lymphocytes Absolute Auto 0.6 X10*3/uL (1.2-4.9); Lymphocytes Percent Auto 7.6 % (20-40); Mean Corpuscular HGB Conc 32.6 g/dl (31.0-36.0); Mean Corpuscular Hemoglobin 28.8 pg (27.0-33.0); Mean Corpuscular Volume 88.2 fL (80.0-98.0); Mean Platelet Volume 10.1 fL (9.4-12.4); Monocytes Absolute Auto 0.6 X10*3/uL (0.1-1.2); Monocytes Percent Auto 7.1 % (2-11); Neutrophils Absolute Auto 6.7 x10*3/uL (2.0-8.3); Neutrophils Percent Auto 83.1 % (45-73); Platelet Count 199 X10*3/uL (160-400); Red Blood Count 4.66 X10*6/uL (4.60-5.80); White Blood Count 8.1 X10*3/uL (4.8-10.8)
[2021-11-09 08:04] LABS: Anion Gap 13 (12-20); Blood Urea Nitrogen 12 mg/dL (9-16); Calcium 8.9 mg/dL (8.4-10.2); Carbon Dioxide 21 mmol/L (22-29); Chloride 107 mmol/L (96-108); Creatinine Clr Calc Pharmacy 101.4; Estimated Glomerular Filt Rate > 60; Glucose Random 89 mg/dL (60-115); Potassium 4.1 mmol/L (3.3-5.1); Sodium 137 mmol/L (135-145)
--- NOTE | 2021-11-09 08:16 | PHA.MEDREC ---
Pharmacy Consult ? Medication Reconciliation Pharmacy has completed the medication reconciliation. Patient comes from [facility], I was able to compare the facility list to the pharmacy fill history.
[2021-11-09 09:01] LABS: Lactic Acid 1.3 mmol/L (0.5-2.0)
[2021-11-09] MEDS: Aspirin Enteric Coated 81 MG TABLET.DR PO (09:24)
[2021-11-09] MEDS: Atorvastatin Calcium 80 MG TABLET PO (09:24)
[2021-11-09] MEDS: LORazepam 1 MG TABLET PO (14:36)
[2021-11-09] MEDS: levETIRAcetam 250 MG TABLET 750 MG PO (14:36)
[2021-11-09] MEDS: Propranolol HCL 10 MG TABLET PO (14:36)
[2021-11-09] MEDS: cefTRIAXone sodium 1 GM in 0.9 % Sodium Chloride 50 ML IV (14:45)
[2021-11-09] MEDS: metroNIDAZOLE/NS 500 MG/100 ML PIGGYBACK 100 MG IV (15:03)
--- NOTE | 2021-11-09 15:03 | PM.DS ---
DS: Providers Provider Date of Service: 11/09/21 Date of admission: 11/09/21 03:13 Primary care physician: Kristofer Perez MD Consults: 11/09/21 03:13 Consult to Neurology Routine Consulting Provider: [facility] Reason for consultation: cva Has provider been notified: Yes 11/09/21 08:16 Consult to Infectious Diseases Routine Consulting Provider: Kadi Negrete Reason for consultation: FUO Has provider been notified: No 11/09/21 14:09 Consult to Infectious Diseases Routine Consulting Provider: Kadi Negrete Reason for consultation: aspirational pneumonia Has provider been notified: No DS: Diagnosis Discharge Diagnosis (1) Breakthrough seizure: Status: Acute (2) Fall: Status: Acute (3) Forehead laceration: Status: Acute (4) Hemianopia, homonymous, left: Status: Acute DS: Summary Hospital Course Hospital Course: ?56-year-old male with past medical history of cognitive impairment, epilepsy, hydrocephalus status post EXCEL DEVELOPER shunt, neurofibromatosis, glaucoma, and anxiety? presenting [facility] emergency department from [facility] for unwitnessed fall with loss of consciousness and head trauma.? Patient is very slow to respond and is not given much detail about the fall but reports that he had a fall hit his head and did lose consciousness.? He denies having had any chest pain, or palpitations prior to the fall.? He denies any headache at this time, no numbness tingling or weakness in his arms or legs.? He does report that he has blurry vision and is not seeing from the corner of his left eye.? He is unable to elaborate further. ? per EMS report patient was very weak to get off? the floor and required significant assistant head cashier to be lifted up into the stretcher.? He appeared to also be aggressive and combative.? At this time patient denies any chest pain, no palpitations, no abdominal pain nausea or vomiting, no diarrhea constipation, no urinary symptoms and no lower extremity edema. ? Patient had laceration in his forehead and was sutured in the ED. ?on further evaluation in the ED patient found to have left homonymous hemianopsia ?CT of the head was done which showed no acute intracranial abnormality, no cervical spine fracture traumatic malalignment, bilateral anterior temporal and right parietal encephalomalacia and white matter hypoattenuation which may reflect sequelae of prior trauma or insult and superimposed on background of advanced supratentorial volume loss.? presence of EXCEL DEVELOPER shunt. ?neurology was consulted, initially felt that patient should be transferred to tertiary care given the trauma and head injury,? [facility] was contacted, neurologist at [facility] felt the patient did not require transfer as there was no evidence of head trauma or abnormality on head CT.? On further discussion with Neurology patient will be admitted to our facility with close monitoring an MRI in the morning ?while on the floor patient developed 1 episode of seizure, lasted less than 1 minute.? Received 2 mg of Ativan.? Patient did become postictal.? Repeat head CT? showed no acute intracranial abnormality, no significant? changed from prior study. ? 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 Hospital course: 56-year-old male with past medical history of? neurofibromatosis, seizure disorder, hydrocephalus status post EXCEL DEVELOPER shunt presents to the hospital after a fall possible secondary to? breakthrough seizure found to have left homonymous hemianopia. hospital course: Patient came admitted to the hospital because of an witness fall possible secondary to seizure, also found to have left-sided hemianopia: patient is slow in answering questions baseline seems more better response as per [facility] staff miss MEYER(phone no [phone]). Case discussed with Neurology: Recommended to transfer to [facility] for further workup for stroke including MRI which need programming of patient's EXCEL DEVELOPER shunt. meanwhile added asa and statin. Ct scan head -does not show cva. In addition patient has possible met sepsis sec to possible aspiration pneumonia: Had fever, mild tachycardia on IV antibiotics, blood cultures sent. Started on IV antibiotics. Consider id evaluation. 2. breakthrough seizure-? pending lamotrigine and Keppra levels continue home medications,ativan prn for breakthrough , consider neurology evaluation. 3. fall with forehead laceration-? fall possibly secondary to seizure episode. -? head laceration sutured with 3 sutures -? CT findings please see below . Above was discussed with the [facility] Neurology in detail and patient was accepted medicine service ( Miss Garcia) Time Spent with Patient Time attestation: Total time spent providing and/or coordinating discharge services: Discharge coordination time: Greater than 30 minutes Quality: Stroke Does the patient have a stroke diagnosis?: No Physical Exam Vital Signs: Vital Signs: Last Vital Signs Temp 100.6 F H 11/09/21 08:06 Pulse 110 H 11/09/21 08:06 Resp 17 11/09/21 08:06 BP 110/74 11/09/21 08:06 Pulse Ox 92 11/09/21 08:06 BMI result Body Mass Index 27.0 Unchanged from H&P. Appearance: Alert.? Oriented but slow in respond.? not in distress.? cvs: rrr, [id number] . res: clear to auscultation ,no rhonchii or wheezing abd: no rebound or guarding ,nt, bs present. ext pulses present , no cyanosis. neuro:limited due to slow response - left? homonymous hemianopsia present ?strength is 5/5 in upper and lower extremities? moves all extermities , follows simple commands. Yes Equal, round and reactive pupils present,EOMI. sensations seems intact DS: Data Data Completed and Pending Labs on day of discharge: Laboratory Results - last 24 hr 11/08/21 11/08/21 11/08/21 22:24 22:24 22:24 WBC 7.8 RBC 4.75 Hgb 13.7 L Hct 41.0 L MCV 86.3 MCH 28.8 MCHC 33.4 RDW 12.7 Plt Count 212 MPV 10.1 Immature Gran % (Auto) 0.4 Neut % (Auto) 74.7 H Lymph % (Auto) 12.1 L [place] % (Auto) 9.3 Eos % (Auto) 3.1 Baso % (Auto) 0.4 Lymph # (Auto) 1.0 L [place] # (Auto) 0.7 Eos # (Auto) 0.2 Baso # (Auto) 0.0 Abs Immat Gran (auto) 0.03 Absolute Neuts (auto) 5.9 Absolute Nucleated RBC 0.000 Nucleated RBC % (auto) 0.0 Sodium 137 Potassium 4.1 Chloride 105 Carbon Dioxide 25 Anion Gap 11 L BUN 16 Creatinine 0.80 Estim Creat Clear Calc 96.3 Estimated GFR > 60 Random Glucose 125 H Lactic Acid Calcium 9.3 Total Bilirubin 0.4 AST 9 ALT 11 Alkaline Phosphatase 88 Total Creatine Kinase Troponin I High Sens Total Protein 6.0 L Albumin 3.8 Urine Color Urine Appearance Urine pH Ur Specific [place] Urine Protein Urine Glucose (UA) Urine Ketones Urine Blood Urine Nitrite Ur Leukocyte Esterase Urine Opiates Screen Urine Fentanyl Screen Ur Barbiturates Screen Ur Phencyclidine Scrn Ur Amphetamines Screen U Benzodiazepines Scrn Urine Cocaine Screen U Marijuana (THC) Screen Ethyl Alcohol COVID-19 (VERONIKA) Negative COVID-19 Clin Com See Note 11/08/21 11/08/21 11/08/21 22:24 22:24 22:24 WBC RBC Hgb Hct MCV MCH MCHC RDW Plt Count MPV Immature Gran % (Auto) Neut % (Auto) Lymph % (Auto) [place] % (Auto) Eos % (Auto) Baso % (Auto) Lymph # (Auto) [place] # (Auto) Eos # (Auto) Baso # (Auto) Abs Immat Gran (auto) Absolute Neuts (auto) Absolute Nucleated RBC Nucleated RBC % (auto) Sodium Potassium Chloride Carbon Dioxide Anion Gap BUN Creatinine Estim Creat Clear Calc Estimated GFR Random Glucose Lactic Acid Calcium Total Bilirubin AST ALT Alkaline Phosphatase Total Creatine Kinase 76 Troponin I High Sens 5.1 Total Protein Albumin Urine Color Urine Appearance Urine pH Ur Specific [place] Urine Protein Urine Glucose (UA) Urine Ketones Urine Blood Urine Nitrite Ur Leukocyte Esterase Urine Opiates Screen Urine Fentanyl Screen Ur Barbiturates Screen Ur Phencyclidine Scrn Ur Amphetamines Screen U Benzodiazepines Scrn Urine Cocaine Screen U Marijuana (THC) Screen Ethyl Alcohol < 10 COVID-19 (VERONIKA) COVID-19 Clin Com 11/09/21 11/09/21 11/09/21 01:59 01:59 07:34 WBC 8.1 RBC 4.66 Hgb 13.4 L Hct 41.1 L MCV 88.2 MCH 28.8 MCHC 32.6 RDW 13.0 Plt Count 199 MPV 10.1 Immature Gran % (Auto) 0.2 Neut % (Auto) 83.1 H Lymph % (Auto) 7.6 L [place] % (Auto) 7.1 Eos % (Auto) 1.6 Baso % (Auto) 0.4 Lymph # (Auto) 0.6 L [place] # (Auto) 0.6 Eos # (Auto) 0.1 Baso # (Auto) 0.0 Abs Immat Gran (auto) 0.02 Absolute Neuts (auto) 6.7 Absolute Nucleated RBC 0.000 Nucleated RBC % (auto) 0.0 Sodium Potassium Chloride Carbon Dioxide Anion Gap BUN Creatinine Estim Creat Clear Calc Estimated GFR Random Glucose Lactic Acid Calcium Total Bilirubin AST ALT Alkaline Phosphatase Total Creatine Kinase Troponin I High Sens Total Protein Albumin Urine Color YELLOW Urine Appearance CLEAR Urine pH 6.0 Ur Specific [place] 1.020 Urine Protein NEG Urine Glucose (UA) NEG Urine Ketones NEG Urine Blood NEG Urine Nitrite NEG Ur Leukocyte Esterase NEG Urine Opiates Screen Not Detected Urine Fentanyl Screen Not Detected Ur Barbiturates Screen Not Detected Ur Phencyclidine Scrn Not Detected Ur Amphetamines Screen Not Detected U Benzodiazepines Scrn Not Detected Urine Cocaine Screen Not Detected U Marijuana (THC) Screen Not Detected Ethyl Alcohol COVID-19 (VERONIKA) COVID-SysClass 11/09/21 11/09/21 07:34 08:45 WBC RBC Hgb Hct MCV MCH MCHC RDW Plt Count MPV Immature Gran % (Auto) Neut % (Auto) Lymph % (Auto) [place] % (Auto) Eos % (Auto) Baso % (Auto) Lymph # (Auto) [place] # (Auto) Eos # (Auto) Baso # (Auto) Abs Immat Gran (auto) Absolute Neuts (auto) Absolute Nucleated RBC Nucleated RBC % (auto) Sodium 137 Potassium 4.1 Chloride 107 Carbon Dioxide 21 L Anion Gap 13 BUN 12 Creatinine 0.76 Estim Creat Clear Calc 101.4 Estimated GFR > 60 Random Glucose 89 Lactic Acid 1.3 Calcium 8.9 Total Bilirubin AST ALT Alkaline Phosphatase Total Creatine Kinase Troponin I High Sens Total Protein Albumin Urine Color Urine Appearance Urine pH Ur Specific [place] Urine Protein Urine Glucose (UA) Urine Ketones Urine Blood Urine Nitrite Ur Leukocyte Esterase Urine Opiates Screen Urine Fentanyl Screen Ur Barbiturates Screen Ur Phencyclidine Scrn Ur Amphetamines Screen U Benzodiazepines Scrn Urine Cocaine Screen U Marijuana (THC) Screen Ethyl Alcohol COVID-19 (VERONIKA) COVID-19 [place] Discharge Plan Discharge Patient Disposition: Xfer Acute Care Hospital Discharge Diagnosis: breakthrough seizures , possible cva and aspirational pneumonia Referrals: [facility] [Other] - 1 Week Kristofer Perez MD [Primary Care Provider] - 2 days Discharge Medications: New aspirin 81 mg Tablet,Delayed Release (Dr/Ec) 81 mg PO DAILY Qty: 1 0RF ceftriaxone 1 gram Recon Soln 1 g IV Q24H Qty: 1 0RF metronidazole in NaCl (iso-os) 500 mg/100 mL Piggyback 500 mg IV Q8H Qty: 100 0RF atorvastatin 80 mg Tablet 80 mg PO DAILY Qty: 1 0RF Continued lamotrigine 150 mg tablet 2 tab PO BID 0RF risperidone 0.25 mg tablet 1 tab PO TID 0RF lamotrigine 25 mg tablet 1 tab PO BID 0RF propranolol 10 mg tablet 1 tab PO TID 0RF levetiracetam 750 mg tablet 1 tab PO TID 0RF acetaminophen 325 mg Tablet 650 mg PO Q4H PRN (Reason: Fever) 0RF magnesium hydroxide [Milk of Magnesia] 400 mg/5 mL Suspension 30 ml PO DAILY PRN (Reason: Constipation) 0RF bisacodyl 10 mg Suppository 10 mg NE DAILY PRN (Reason: Constipation) 0RF lorazepam 1 mg Tablet 1 mg PO Q6H PRN (Reason: Anxiety) 0RF Discharge Orders: Discharge Order (Routine); Ordered 11/09/21 Ordered By: Eddie Pastor Diet: advance to usual diet Activity on Discharge: As tolerated Stand Alone Forms: Patient Portal Discharge page, Community Support Activity Restrictions/Additional Instructions: Take your medications as prescribed. If you were prescribed antibiotics today, it is important that you take your medication to their entirety, do not skip any doses, do not finish them early. Follow-up with your primary care provider this week. Return to the emergency department with new or worsening symptoms. Such as fevers, chills, chest pain, shortness of breath, nausea, vomiting, dizziness, headache, vision changes, lethargy In case of emergency call 911 Sutures must be removed in 3-5 days. Care Plan Goals: Patient came admitted to the hospital because of an witness fall possible secondary to seizure, also found to have left-sided hemianopia: patient is slow in answering questions baseline unclear. Case discussed with Neurology: Recommended to transfer to [facility] for further workup for stroke including MRI which need programming of patient's EXCEL DEVELOPER shunt. In addition patient has possible aspiration pneumonia: Started on IV antibiotics, blood cultures sent. Health Concerns: As above. Plan of Treatment: As above. Assessment: As above. Patient Instructions: Laceration (ED), Laceration (DC), Fall Prevention for Older Adults (ED) Discharge Date/Time: 11/09/21 16:45
--- NOTE | 2021-11-09 15:05 | MHC.CM.PN ---
Addendum entered by Amy Abel 11/09/21 15:25: CORRECTION: PHONE NUMBER LISTED BELOW FOR BENJAMIN GOES TO SOMEONE ELSE'S MAILBOX. [phone] GOES DIRECTLY TO . GREETING INDICATES THIS IS BENJAMIN'S NUMBER HOWEVER MESSAGE CANNOT BE LEFT DUE TO MAILBOX BEING FULL Addendum entered by Amy Abel 11/09/21 15:20: COPY OF IMM SENT TO [facility] Addendum entered by Amy Abel 11/09/21 15:18: IMM TO BE MAILED TO PTS HCP, BENJAMIN ALANIZ, AT THE ADDRESS LISTED [address] [place] [phone] PER MD, PT MAY TRANSFER TO [facility] TODAY Original Note: PT IS A LTC RESIDENT OF [facility] CM ATTEMPTED TO CONTACT PTS FAMILY MEMBERS VIA NUMBERS IN CHART AND ON HCP. TWO ARE OUT OF SERVICE. PTS BROTHER, HUGH'S NUMBER ([phone]) GOES DIRECTLY TO HOWEVER THE MAILBOX IS FULL. CM CONTACTED [facility] LIAISON, SHE WILL SEARCH FOR OTHER CONTACT INFO AND SEND IT TO CM VIA [facility]
--- NOTE | 2021-11-09 15:44 | PM.EVENT ---
Event Note Date of Service: 11/09/21 Event Note: Please see discharge summary
[2021-11-09] MEDS: risperiDONE 0.25 MG TABLET PO (16:15)
--- NOTE | 2021-11-09 17:04 | PC.NURSE ---
report given to COLLIN Quiles at [facility]. pt transported via ambulance to [facility] ([id number]). vss,
--- NOTE | 2021-11-09 18:11 | PM.NEUROCN ---
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 presenting to the emergency department from alf facility for unwitnessed fall with loss of consciousness and head trauma.?No seizure was witnesseed . He did have a 1 min. seizure in the emergency room and was given Ativan. Patient is very slow to respond and is Unable to provide any meaningful history.He denies having had any chest pain, or palpitations prior to the fall.? He denies any headache at this time, no numbness tingling or weakness in his arms or legs.? He does report that he has blurry vision and is not seeing from the corner of his left eye.? He is unable to elaborate further. ? per EMS report patient was very weak to get off? the floor and required significant assistant nurse manager to be lifted up into the stretcher.He was noted to have a left homonymous hemianopsia and was therefore admitted to rule out an occipital infarct. He was scheduled to have an MRI but because of the shunt the radiology refused to do the MRI he because they wanted someone to program the shunt even though it is unclear if this is a programmable shunt. Since there is no provision for programming of shunt here and the patient would need to be transferred to [facility]. This was communicated to Dr. Pastor? Review of Systems Review of Systems: Yes all other systems are reviewed and are negative and Unobtainable due to mental status PMFSH Past Medical History Medical History Anxiety Cognitive impairment Epilepsy Glaucoma Hydrocephalus Neurofibromatosis Surgical History Surgical History Surgical history unknown Social History Social History Alcohol intake: never Patient Tobacco Use Status: Never used Tobacco Advance Directives Date on File: 08/28/20 Meds Allergies Allergy/AdvReac Type Severity Reaction Status Date / Time doxycycline [DOXYCYCLINE] Allergy Unknown UNKNOWN Verified 07/01/21 12:04 Penicillins [PCN] Allergy Unknown SYNCOPE, Verified 07/01/21 12:04 SEIZURE tetracycline [TETRACYCLINE] Allergy Unknown UNKNOWN Verified 07/01/21 12:04 diazepam [From Valium] Allergy Unknown Verified 11/08/21 19:14 Home Medications Medication Instructions Recorded Confirmed Last Taken Type acetaminophen 325 mg tablet 650 mg PO Q4H PRN 11/09/21 11/09/21 Unknown History bisacodyl 10 mg rectal suppository [address] DAILY PRN 11/09/21 11/09/21 Unknown History lamotrigine 150 mg tablet 2 tab PO BID 11/09/21 11/09/21 Unknown History lamotrigine 25 mg tablet 1 tab PO BID 11/09/21 11/09/21 Unknown History levetiracetam 750 mg tablet 1 tab PO TID 11/09/21 11/09/21 Unknown History lorazepam 1 mg tablet 1 mg PO Q6H PRN 11/09/21 11/09/21 Unknown History magnesium hydroxide 400 mg/5 mL 30 ml PO DAILY PRN 11/09/21 11/09/21 Unknown History oral suspension (Milk of Magnesia) propranolol 10 mg tablet 1 tab PO TID 11/09/21 11/09/21 Unknown History risperidone 0.25 mg tablet 1 tab PO TID 11/09/21 11/09/21 Unknown History Physical Exam Vital Signs: Vital Signs: Last Vital Signs Temp 100.6 F H 11/09/21 08:06 Pulse 110 H 11/09/21 08:06 Resp 17 11/09/21 08:06 BP 110/74 11/09/21 08:06 Pulse Ox 92 11/09/21 08:06 BMI result Body Mass Index 27.0 Const: General: cooperative and no acute distress Eyes: General: appearance normal, both eyes and all related structures Pupils: Equal, round and reactive pupils present Resp: Effort & Inspection: normal respiratory effort Auscultation: clear to auscultation bilaterally Cardio: Rate: regular rate Rhythm: regular rhythm GI: Palpation (GI): Soft to palpation Auscultation: normal bowel sounds Skin: General skin exam: no rashes or lesions noted Neuro: Other: Limited nonfocal examination but there does appear to be a left homonymous hemianopsia. It's unclear if this is new or old. He is slow in his responses as per his history but follows commands. Cranial nerves: Yes Equal, round and reactive pupils present Extrem: General: Yes normal to inspection and Yes no pedal edema Results Labs CBC & Chem 7: 11/09/21 07:34 11/09/21 07:34 Labs: Short CBC 11/08/21 11/09/21 Range/Units 22:24 07:34 WBC 7.8 8.1 (4.8-10.8) X10*3/uL Hgb 13.7 L 13.4 L (14.0-18.0) g/dl Hct 41.0 L 41.1 L (42.0-52.0) % Plt Count 212 199 (160-400) X10*3/uL BMP 11/08/21 11/09/21 22:24 07:34 Sodium 137 137 Potassium 4.1 4.1 Chloride 105 107 Carbon Dioxide 25 21 L BUN 16 12 Creatinine 0.80 0.76 Calcium 9.3 8.9 Cardiac Enzymes 11/08/21 Range/Units 22:24 Total Creatine Kinase 76 (38-174) U/L Liver Function 11/08/21 Range/Units 22:24 Total Bilirubin 0.4 (0.0-1.0) mg/dL AST 9 (5-37) U/L ALT 11 (0-40) U/L Alkaline Phosphatase 88 (39-117) U/L Albumin 3.8 (3.5-5.0) g/dL Urine 11/09/21 Range/Units 01:59 Urine Color YELLOW Urine Appearance CLEAR Urine pH 6.0 (5.0-8.0) Ur Specific [place] 1.020 (1.005-1.025) Urine Protein NEG (NEG-TRACE) MG/DL Urine Glucose (UA) NEG (NEG) MG/DL Assessment and Plan (1) Breakthrough seizure: Status: Acute Adjust anticonvulsant levels (2) Fall: Status: Acute Probably from another unwitnessed seizure (3) Forehead laceration: Status: Acute (4) Hemianopia, homonymous, left: Status: Acute Possible occipital lobe infarct. MRI to be done at [facility] where the patient has been accepted for transfer to Procedures Date of Service Date of Service: 11/09/21
[2021-11-14 10:27] LABS: Lamotrigine Lamictal 6.7 mcg/mL (4.0-18.0)
[2021-11-15 09:42] LABS: Levetiracetam Keppra 14.5 mcg/mL (12.0-46.0)
== END 2021-11-09 16:45 | disposition short-term general hospital (02) | DRG 871 ==
LOC: HO.ED 23:28 → HO.EDOVER 11-09 03:17
PROVIDERS: Physician Assistant; Admitting Provider Internal Medicine; Emergency Provider Emergency Medicine; PCP Family Medicine; Visit Provider Internal Medicine
DX: A41.9 Sepsis, unspecified organism (principal); J69.0 Pneumonitis due to inhalation of food and vomit; H53.462 Homonymous bilateral field defects, left side; G40.909 Epilepsy, unspecified, not intractable, without status epilepticus; S01.81XA Laceration without foreign body of other part of head, initial encounter; W19.XXXA Unspecified fall, initial encounter; Z20.822 Contact with and (suspected) exposure to COVID-19; Z88.0 Allergy status to penicillin; Z98.2 Presence of cerebrospinal fluid drainage device; Z79.82 Long term (current) use of aspirin; Z79.899 Other long term (current) drug therapy
CPT/HCPCS: 36415; 70450; 70496; 70498; 71045; 72125; 80048; 80053; 80175; 80177; 80307; 81003; 82077; 82550; 83605; 84484; 85025; 87040; 87635; 93005; 96361; 96374; 99285; 99291; 99292; J0696; J2060; Q9967

== ENCOUNTER 2022-02-05 06:46 | Emergency (ER) | payer MEDICARE, MEDICAID, SELFPAY ==
--- NOTE | ~2022-02-05 | CT_ITS ---
EXAMINATION: CT HEAD WITHOUT CONTRAST CLINICAL INFORMATION: Seizures COMPARISON: Head CT 11/09/2021 TECHNIQUE: Contiguous axial imaging was performed from the skull base to vertex without intravenous administration of contrast. This CT examination was performed using dose optimization techniques as appropriate, variously including the following: *Automated exposure control *Adjustment of mA and/or kV according to patient size (this includes techniques or standardized protocols for targeted exams where dose is matched to indication/reason for exam; i.e. extremities or head) *Use of iterative reconstruction technique DLP: 913 mGy-cm FINDINGS: There is no evidence of acute intracranial hemorrhage or territorial infarction. No abnormal mass effect or midline shift is appreciated. Montiel-white differentiation is well preserved. No extra-axial fluid collections. The ventricular system is again noted to be dilated. Stable positioning of right parietal [employer] shunt catheter. There are areas of low density in the periventricular and subcortical white matter, most consistent with sequelae of microvascular ischemic change. Stable encephalomalacia changes. No acute fracture. Chronic appearing asymmetric soft tissue density, nonspecific. The visualized paranasal sinuses and mastoid air cells are well aerated. CT/CT head/brain wo con IMPRESSION: Stable chronic changes of the head without CT evidence for acute intracranial pathology.
[2022-02-05 06:53] VITALS: BP 105/66; PULSE 80; O2SAT 99
[2022-02-05 06:54] VITALS: BP 123/78; PULSE 80; RESP 19; TEMP 36.6; O2SAT 98; BMI 19.4
--- NOTE | 2022-02-05 08:05 | ED.SEIZURE ---
HPI - Seizure General Chief Complaint: Seizure Stated Complaint: Fall Time Seen by Provider: 02/05/22 07:56 Source: patient, EMS and old records reviewed Mode of arrival: EMS History of Present Illness HPI Narrative: Patient with a history of seizure disorder, dementia, neurofibromatosis, presents after a witnessed seizure. He struck his left eyebrow on the floor apparently. Patient does not recall any of the events. He complains of feeling little sore at the site of the laceration of his left eyebrow. Otherwise he denies generalized headache, neck pain, back chest abdomen or extremity pain. Similar history in the past with presentations for lacerations after seizures. He resides in a [facility]dc Related Data Home Medications Medication Instructions Recorded Confirmed acetaminophen 325 mg tablet 650 mg PO Q4H PRN Fever 11/09/21 11/09/21 bisacodyl 10 mg rectal suppository 10 mg WI DAILY PRN Constipation 11/09/21 11/09/21 lamotrigine 150 mg tablet 2 tab PO BID 11/09/21 11/09/21 lamotrigine 25 mg tablet 1 tab PO BID 11/09/21 11/09/21 levetiracetam 750 mg tablet 1 tab PO TID 11/09/21 11/09/21 lorazepam 1 mg tablet 1 mg PO Q6H PRN Anxiety 11/09/21 11/09/21 magnesium hydroxide 400 mg/5 mL 30 ml PO DAILY PRN Constipation 11/09/21 11/09/21 oral suspension (Milk of Magnesia) propranolol 10 mg tablet 1 tab PO TID 11/09/21 11/09/21 risperidone 0.25 mg tablet 1 tab PO TID 11/09/21 11/09/21 Previous Rx's Medication Instructions Recorded aspirin 81 mg tablet,delayed 81 mg PO DAILY #1 tab 11/09/21 release atorvastatin 80 mg tablet 80 mg PO DAILY #1 tab 11/09/21 ceftriaxone 1 gram solution for 1 g IV Q24H #1 ea 11/09/21 injection metronidazole 500 mg/100 mL-sodium 500 mg IV Q8H #100 mL 11/09/21 chloride(iso) intravenous piggyback Allergies Allergy/AdvReac Type Severity Reaction Status Date / Time doxycycline [DOXYCYCLINE] Allergy Unknown UNKNOWN Verified 07/01/21 12:04 Penicillins [PCN] Allergy Unknown SYNCOPE, Verified 07/01/21 12:04 SEIZURE tetracycline [TETRACYCLINE] Allergy Unknown UNKNOWN Verified 07/01/21 12:04 diazepam [From Valium] Allergy Unknown Verified 11/08/21 19:14 Review of Systems Constitutional: Comments: no fevers or chills Eyes: Comments: no vision disturbance ENT: Comments: no headache Cardiovascular: Comments: no chest pain Respiratory: Comments: no cough or dyspnea Gastrointestinal: Comments: no abdominal pain Musculoskeletal: Comments: no extremity injury Integumentary/Breasts: Comments: left eyebrow laceration Neurologic: Comments: seizure. No weakness numbness or paresthesias [facility] Past Medical History Medical History Anxiety Cognitive impairment Epilepsy Glaucoma Hydrocephalus Neurofibromatosis Surgical History Surgical history unknown Social History Social History Alcohol intake: never Patient Tobacco Use Status: Never used Tobacco Advance Directives: Yes Advance Directives on File: Yes Advance Directives Date on File: 07/02/21 Physical Exam Vital Signs: Vital Signs: Last Vital Signs Temp 98 F 02/05/22 06:54 Pulse 80 02/05/22 06:54 Resp 19 02/05/22 06:54 BP 123/78 02/05/22 06:54 Pulse Ox 98 02/05/22 06:54 O2 Del Method 02/05/22 06:54 BMI result Body Mass Index 19.4 Const: Other: awake alert no acute distress. Initially with collar in place HEENT: Other: superficial 1 cm laceration left eyebrow. Wound margins are well approximated. Eyes: Other: Pupils equal round reactive to light. No evidence of ocular trauma Neck: Other: no neck pain or tenderness. Full range of motion without discomfort Chest: Other: no chest wall tenderness or thoracic tenderness Resp: Other: no respiratory distress. Clear and equal bilaterally. Good air entry Cardio: Other: regular rate and rhythm without murmurs rubs or gallops GI: Other: soft nontender nondistended Skin: Other: warm pink and dry. Laceration as mentioned. diffuse neurofibromatosis lesions Neuro: Other: Nonfocal neuro exam Course Course Course Narrative: seizure with known seizure disorder, epileptiform. Left eyebrow superficial laceration. CT scan to rule out intracranial hemorrhage Dermabond should suffice 10:20. CT scan shows no acute intracranial abnormality. Stable for discharge home Procedures Procedure Narrative Procedure Narrative: Left eyebrow laceration repaired with Dermabond with good results and good hemostasis. Patient tolerated procedure well Laceration Laceration 1: Site: face Side (If applicable): left Size (cm): 1.5 Description: linear Depth: simple, single layer Discharge Plan Discharge Clinical Impression: Fall, Epileptic seizure, Face lacerations Patient Disposition: Home, Self-Care Instructions: Laceration (ED) Additional Instructions: your cut was repaired with skin glue. It will absorb on its own. Return only for signs of infection It is okay to shower normally. Continue to take your current medications Prescriptions: No Action lamotrigine 150 mg tablet 2 tab PO BID risperidone 0.25 mg tablet 1 tab PO TID lamotrigine 25 mg tablet 1 tab PO BID propranolol 10 mg tablet 1 tab PO TID levetiracetam 750 mg tablet 1 tab PO TID acetaminophen 325 mg Tablet 650 mg PO Q4H PRN (Reason: Fever) magnesium hydroxide [Milk of Magnesia] 400 mg/5 mL Suspension 30 ml PO DAILY PRN (Reason: Constipation) bisacodyl 10 mg Suppository 10 mg WI DAILY PRN (Reason: Constipation) lorazepam 1 mg Tablet 1 mg PO Q6H PRN (Reason: Anxiety) aspirin 81 mg Tablet,Delayed Release (Dr/Ec) 81 mg PO DAILY Qty: 1 0RF ceftriaxone 1 gram Recon Soln 1 g IV Q24H Qty: 1 0RF metronidazole in NaCl (iso-os) 500 mg/100 mL Piggyback 500 mg IV Q8H Qty: 100 0RF atorvastatin 80 mg Tablet 80 mg PO DAILY Qty: 1 0RF
--- NOTE | 2022-02-05 08:43 | PC.NURSE ---
Pt comes in via EMS from SNF s/p unwitnessed fall, unknown context but PMHX of seizure. Pt is A, oriented to baseline which is person and place. No complaints of pain, Lac to L eyebrow, bleeding controlled, c-collar placed by EMS, plan for dermabond and CT scan. Will continue to monitor.
[2022-02-05 11:07] VITALS: BP 117/71; PULSE 66; RESP 12; TEMP 36.7; O2SAT 100
== END 2022-02-05 11:36 | disposition skilled nursing facility (03) ==
PROVIDERS: Emergency Provider Emergency Medicine
DX: G40.909 Epilepsy, unspecified, not intractable, without status epilepticus (principal); S01.112A Laceration without foreign body of left eyelid and periocular area, initial encounter; W17.89XA Other fall from one level to another, initial encounter; Y93.9 Activity, unspecified; Y92.129 Unspecified place in nursing home as the place of occurrence of the external cause; Y99.9 Unspecified external cause status
CPT/HCPCS: 12011; 70450; 99284

== ENCOUNTER 2022-12-14 21:44 | Emergency (ER) | payer MEDICARE, MEDICAID, SELFPAY ==
[2022-12-14 21:55] VITALS: BP 113/75; BP 116/74; PULSE 68; PULSE 71; RESP 13; TEMP 36.6; O2SAT 95; O2SAT 96; BMI 25.8
[2022-12-14 22:10] LABS: MANUAL DIFF FLAG NO
[2022-12-14 22:12] LABS: Basophils Absolute Auto 0.1 X10*3/uL (0.0-0.2); Basophils Percent Auto 0.7 % (0-2); Eosinophils Absolute Auto 0.4 X10*3/uL (0.0-0.4); Eosinophils Percent Auto 5.3 % (0-4); Hematocrit 44.1 % (42.0-52.0); Hemoglobin 14.5 g/dl (14.0-18.0); Imm Gran Abs Auto 0.07 X10*3/uL (0.00-0.03); Lymphocytes Absolute Auto 0.9 X10*3/uL (1.2-4.9); Lymphocytes Percent Auto 12.6 % (20-40); Mean Corpuscular HGB Conc 32.9 g/dl (31.0-36.0); Mean Corpuscular Hemoglobin 28.8 pg (27.0-33.0); Mean Corpuscular Volume 87.7 fL (80.0-98.0); Mean Platelet Volume 10.4 fL (9.4-12.4); Monocytes Absolute Auto 0.8 X10*3/uL (0.1-1.2); Monocytes Percent Auto 11.9 % (2-11); Neutrophils Absolute Auto 4.6 x10*3/uL (2.0-8.3); Neutrophils Percent Auto 68.5 % (45-73); Platelet Count 197 X10*3/uL (160-400); Red Blood Count 5.03 X10*6/uL (4.60-5.80); Red Cell Distribution Width 13.1 % (11.0-16.0); White Blood Count 6.8 X10*3/uL (4.8-10.8)
--- NOTE | 2022-12-14 22:22 | ED.GENADULT ---
HPI - General Adult General Chief complaint: General Medical Stated complaint: rectal mass bleeding Time Seen by Provider: 12/14/22 22:22 Source: patient Mode of arrival: EMS Limitations: no limitations History of Present Illness HPI narrative: 57-year-old male who was sent to the emergency department from his nursing facility, [facility] for ?bleeding, golf ball size mass in rectum ?. The patient was not aware of this rectal mass. He denies any rectal pain. Patient does have a history of neurofibromatosis but he states that he does not have a history of hemorrhoids. Related Data Home Medications Medication Instructions Recorded Confirmed acetaminophen 325 mg tablet 650 mg PO Q4H PRN Fever 11/09/21 11/09/21 bisacodyl 10 mg rectal suppository 10 mg HI DAILY PRN Constipation 11/09/21 11/09/21 lamotrigine 150 mg tablet 2 tab PO BID 11/09/21 11/09/21 lamotrigine 25 mg tablet 1 tab PO BID 11/09/21 11/09/21 levetiracetam 750 mg tablet 1 tab PO TID 11/09/21 11/09/21 lorazepam 1 mg tablet 1 mg PO Q6H PRN Anxiety 11/09/21 11/09/21 magnesium hydroxide 400 mg/5 mL 30 ml PO DAILY PRN Constipation 11/09/21 11/09/21 oral suspension (Milk of Magnesia) propranolol 10 mg tablet 1 tab PO TID 11/09/21 11/09/21 risperidone 0.25 mg tablet 1 tab PO TID 11/09/21 11/09/21 Previous Rx's Medication Instructions Recorded aspirin 81 mg tablet,delayed 81 mg PO DAILY #1 tab 11/09/21 release atorvastatin 80 mg tablet 80 mg PO DAILY #1 tab 11/09/21 ceftriaxone 1 gram solution for 1 g IV Q24H #1 ea 11/09/21 injection metronidazole 500 mg/100 mL in 500 mg IV Q8H #100 mL 11/09/21 sodium chlor(iso) intravenous piggyback Allergies Allergy/AdvReac Type Severity Reaction Status Date / Time doxycycline [DOXYCYCLINE] Allergy Unknown UNKNOWN Verified 07/01/21 12:04 Penicillins [PCN] Allergy Unknown SYNCOPE, Verified 07/01/21 12:04 SEIZURE tetracycline [TETRACYCLINE] Allergy Unknown UNKNOWN Verified 07/01/21 12:04 diazepam [From Valium] Allergy Unknown Verified 11/08/21 19:14 Review of Systems Review of Systems: Yes all other systems are reviewed and are negative [facility] Past Medical History Medical History Anxiety Cognitive impairment Epilepsy Glaucoma Hydrocephalus Neurofibromatosis Surgical History Surgical history unknown Social History Social History Alcohol intake: never Patient Tobacco Use Status: Never used Tobacco Advance Directives Date on File: 07/02/21 Physical Exam ED Vital Signs: Vital Signs - 24 hr 12/14/22 21:55 Temperature 97.9 F Pulse Rate 71 Respiratory Rate 13 Blood Pressure 113/75 Pulse Oximetry 96 Oxygen Delivery Method Room Air BMI result Body Mass Index 25.8 General: Awake, alert, male patient, very pleasant cooperative, does not appear to be in distress Rectal exam: The patient has a 3 cm external hemorrhoid, there is red blood the hemorrhoid but it does not appear to be actively bleeding. The hemorrhoid is soft and nontender and does not appear to be thrombosed. Medical Decision Making Medical Decision Making [facility] Narrative: 57-year-old male with a history of neurofibromatosis who was referred to the emergency department from his nursing facility for evaluation of bleeding rectal mass. Patient's examination is consistent with a non thrombosed external hemorrhoid. I did discuss this with the patient. I did recommend medical management at this time with preparation H hemorrhoid cream twice a day, preparation H suppositories twice a day after each bowel movement, Metamucil daily. The patient will need to be evaluated by you the general surgeon or gastroenterology if the hemorrhoid gets worse. Patient will be discharged back to his nursing facility. 2241: My interpretation of patient's laboratory data is as follows: CBC was normal with no anemia , CMP was normal Differential Diagnosis Differential diagnosis includes but is not limited to external hemorrhoid, external thrombosed hemorrhoid, rectal mass Lab Data [facility] Lab Attestation statement: I reviewed the patient's lab results. 12/14/22 22:07 12/14/22 22:07 Labs: Lab Results 12/14/22 Range/Units 22:07 WBC 6.8 (4.8-10.8) X10*3/uL RBC 5.03 (4.60-5.80) X10*6/uL Hgb 14.5 (14.0-18.0) g/dl Hct 44.1 (42.0-52.0) % MCV 87.7 (80.0-98.0) fL MCH 28.8 (27.0-33.0) pg MCHC 32.9 (31.0-36.0) g/dl RDW 13.1 (11.0-16.0) % Plt Count 197 (160-400) X10*3/uL MPV 10.4 (9.4-12.4) fL Immature Gran % (Auto) 1.0 H (0.0-0.4) % Neut % (Auto) 68.5 (45-73) % Lymph % (Auto) 12.6 L (20-40) % [place] % (Auto) 11.9 H (2-11) % Eos % (Auto) 5.3 H (0-4) % Baso % (Auto) 0.7 (0-2) % Lymph # (Auto) 0.9 L (1.2-4.9) X10*3/uL [place] # (Auto) 0.8 (0.1-1.2) X10*3/uL Eos # (Auto) 0.4 (0.0-0.4) X10*3/uL Baso # (Auto) 0.1 (0.0-0.2) X10*3/uL Abs Immat Gran (auto) 0.07 H (0.00-0.03) X10*3/uL Absolute Neuts (auto) 4.6 (2.0-8.3) x10*3/uL Absolute Nucleated RBC 0.000 (0.0-0.012) X10*3/uL Nucleated RBC % (auto) 0.0 (0.0-0.2) /100WBC Discharge Plan Discharge Clinical Impression: Bleeding external hemorrhoids Patient Disposition: Home, Self-Care Instructions: Hemorrhoids (ED) Additional Instructions: You have a external, nonthrombosed, bleeding hemorrhoid. Initial management is medical treatment and if this does not improve the hemorrhoid then you may need to be evaluated by either gastroenterology or general surgery. Apply preparation H hemorrhoid cream twice a day to the external hemorrhoid Use preparation H suppositories twice a day after each bowel movement. Use Metamucil 1 tsp in 8 oz of water daily. Follow-up with your doctor in 2 days. Please return to the emergency department if your symptoms get worse or if you develop any symptoms that are concerning to you. Your not anemic with a hemoglobin and hematocrit of 14.5 and 44.1 and your comprehensive metabolic panel was normal. Prescriptions: No Action lamotrigine 150 mg tablet 2 tab PO BID risperidone 0.25 mg tablet 1 tab PO TID lamotrigine 25 mg tablet 1 tab PO BID propranolol 10 mg tablet 1 tab PO TID levetiracetam 750 mg tablet 1 tab PO TID acetaminophen 325 mg Tablet 650 mg PO Q4H PRN (Reason: Fever) magnesium hydroxide [Milk of Magnesia] 400 mg/5 mL Suspension 30 ml PO DAILY PRN (Reason: Constipation) bisacodyl 10 mg Suppository 10 mg HI DAILY PRN (Reason: Constipation) lorazepam 1 mg Tablet 1 mg PO Q6H PRN (Reason: Anxiety) aspirin 81 mg Tablet,Delayed Release (Dr/Ec) 81 mg PO DAILY Qty: 1 0RF ceftriaxone 1 gram Recon Soln 1 g IV Q24H Qty: 1 0RF metronidazole in NaCl (iso-os) 500 mg/100 mL Piggyback 500 mg IV Q8H Qty: 100 0RF atorvastatin 80 mg Tablet 80 mg PO DAILY Qty: 1 0RF Referrals: Lizandro Emmanuel MD [Physician] - 2 weeks (Bleeding, non thrombosed, external hemorrhoids)
[2022-12-14 22:30] LABS: Alanine Aminotransferase 28 U/L (0-40); Alkaline Phosphatase 92 U/L (39-117); Anion Gap 11 (12-20); Aspartate Amino Transferase 19 U/L (5-37); Bilirubin Total 0.5 mg/dL (0.0-1.0); Blood Urea Nitrogen 24 mg/dL (9-16); Calcium 9.1 mg/dL (8.4-10.2); Carbon Dioxide 27 mmol/L (22-29); Chloride 105 mmol/L (96-108); Creatinine Clr Calc Pharmacy 85.5; Estimated Glomerular Filt Rate > 60; Glucose Random 103 mg/dL (60-115); Sodium 138 mmol/L (135-145); Total Protein 6.1 g/dL (6.5-8.0)
[2022-12-14 22:58] VITALS: BP 104/66; PULSE 67; RESP 14; TEMP 37.1; O2SAT 96
[2022-12-15 01:14] VITALS: RESP 14
--- NOTE | 2022-12-15 01:15 | PC.NURSE ---
Nursing report given to Rosalie over a [facility]. Pt returning via EMS and aware of plan of care. IV line removed with no complications. Pt tolerated well.
== END 2022-12-15 01:16 | disposition home or self-care (01) ==
PROVIDERS: Emergency Provider Emergency Medicine Emergency Medical Services; PCP Family Medicine
DX: K64.4 Residual hemorrhoidal skin tags (principal); Z79.899 Other long term (current) drug therapy
CPT/HCPCS: 36415; 80053; 85025; 99283

== ENCOUNTER 2023-02-04 10:31 | Outpatient (REF) | payer MEDICARE, MEDICAID, SELFPAY ==
[2023-02-04 14:23] LABS: Cholesterol 125 mg/dL; HDL Cholesterol 50 mg/dL; LDL Cholesterol Calculated 66 mg/dl; Triglycerides 49 mg/dL
== END 2023-02-04 10:32 | disposition home or self-care (01) ==
LOC: HO.WFDLDS 10:31
PROVIDERS: Visit Provider Nurse Practitioner Family
DX: Z00.00 Encounter for general adult medical examination without abnormal findings (principal); G40.909 Epilepsy, unspecified, not intractable, without status epilepticus; R41.89 Other symptoms and signs involving cognitive functions and awareness
CPT/HCPCS: 36415; 80061; 84443